=== PATIENT | female | born 1950 | race African-American/Black ===

== ENCOUNTER 2018-07-18 09:34 | Inpatient (IN) | payer MEDICARE ==
[~2018-07-18] VITALS: Ht 165.1 cm; Wt 90.7 kg
[2018-07-18] MEDS ORDERED: fentaNYL PF VIAL 100 MCG/2 ML VIAL IV ONE ×2 (10:00→10:30)
--- NOTE | 2018-07-18 10:03 | PHYS DOC ---
Past Medical History Past Medical History: Diabetes-Type II, Hypertension (SINDY FUENTES APRN) Past Surgical History: No Surgical History (SINDY FUENTES APRN) Alcohol Use: None Drug Use: None (SINDY FUENTES APRN) Adult General Chief Complaint Chief Complaint: MECHANICAL FALL HPI HPI 67-year-old female presents to ER via EMS from her residence following a mechanical fall at home. Patient states around 8:30 this morning she slid on her tile floor causing her right ankle to bend backwards. Patient has obvious deformity to right ankle and reports she has been unable to ambulate. She denies any [id number] medications prior to arrival EMS did start an IV but did not administer pain medication. Patient reports last food intake was last night. She denies striking her head or having any head, neck, or back pain . She reports only injury is to rt ankle. (SINDY FUENTES APRN) Review of Systems Review of Systems Constitutional: Denies fatigue/LOC Eyes: Denies change in visual acuity or eye pain [] HENT: Denies head pain Respiratory: Denies cough or shortness of breath [] Cardiovascular: Denies chest pain GI: Denies abdominal pain, nausea, vomiting- denies incontinence of bowel or bladder : Denies dysuria or hematuria [] Musculoskeletal: Denies back/neck pain. Reports right ankle pain with deformity Integument: Denies abrasions or bruising. Neurologic: Denies headache, focal weakness or sensory changes. Denies dizziness All other systems were reviewed and found to be within normal limits, except as documented in this note. (SINDY FUENTES APRN) Current Medications Current Medications Current Medications Medications (Trade) Dose Ordered Sig/[facility] Start Time Stop Time Status Last Admin Dose Admin Fentanyl Citrate (Fentanyl 2ml Vial) 25 mcg 1X ONCE 07/18/18 10:30 07/18/18 10:31 DC Ketamine HCl 100 mg 1X ONCE 07/18/18 11:00 07/18/18 11:01 DC 07/18/18 11:55 100 MG Ketamine HCl (Ketamine) 100 mg 1X ONCE 07/18/18 10:30 07/18/18 10:31 Cancel Ondansetron HCl (Zofran) 4 mg 1X ONCE 07/18/18 12:00 07/18/18 12:03 DC 07/18/18 12:08 4 MG (HOUGHAPPLE Herbert HICKMAN) Allergies Allergies Allergies Coded Allergies Type Severity Reaction Last Updated Verified No Known Drug Allergies 07/18/18 No (HOUGHAPPLEDONNY Godinez DO) Physical Exam Physical Exam Constitutional: Well developed, well nourished, no acute distress, non-toxic appearance. [] HENT: Normocephalic, atraumatic, oropharynx moist, no oral injury, nose normal. [] Eyes: Pupils equal, conjunctiva normal, no discharge. [] Neck: Normal range of motion, no tenderness mid line Cspine, supple, no stridor. [] Cardiovascular:Heart rate regular rhythm, no murmur [] Lungs & Thorax: Bilateral breath sounds clear to auscultation. Resp. equal/nonlabored Abdomen: Bowel sounds normal, soft, no tenderness Skin: Warm, dry, no erythema, no rash. [] Back: No tenderness mid spine- no palp. deformity, no CVA tenderness. [] Extremities: Pelvis stable/nontender. Lt LE NL exam- nontender. Rt hip/knee nontender and no palp. deformity. Deformity to rt ankle with swelling medial/lateral malleolus- no tenderness in foot/calcaneus; no open wounds. 2+ bilat. dorsalis pedis/posterior tibial. Neurologic: Alert and oriented X 3, normal motor function, normal sensory function, no focal deficits noted. [] Psychologic: Affect normal, judgement normal, mood normal. [] (KEYONT,SINDY Silva APRN) Current Patient Data Vital Signs Vital Signs Date Time Temp Pulse Resp B/P (MAP) Pulse Ox O2 Delivery O2 Flow Rate FiO2 07/18/18 11:45 124 19 98 07/18/18 11:03 98.6 165/70 2.0 98.4 2.0 98.4 2.0 98.4 2.0 98.7 2.0 98.7 2.0 98.7 98.2 98.2 07/18/18 09:40 Room Air (KRZYSZTOFAPPLE Herbert HICKMAN) Lab Values Laboratory Tests Test 07/18/18 09:41 White Blood Count 5.1 x10^3/uL (4.0-11.0) Red Blood Count 4.13 x10^6/uL (3.50-5.40) Hemoglobin 11.7 g/dL (12.0-15.5) L Hematocrit 36.9 % (36.0-47.0) Mean Corpuscular Volume 89 fL (79-100) Mean Corpuscular Hemoglobin 28 pg (25-35) Mean Corpuscular Hemoglobin Concent 32 g/dL (31-37) Red Cell Distribution Width 14.2 % (11.5-14.5) Platelet Count 261 x10^3/uL (140-400) Neutrophils (%) (Auto) 56 % (31-73) Lymphocytes (%) (Auto) 34 % (24-48) Monocytes (%) (Auto) 8 % (0-9) Eosinophils (%) (Auto) 1 % (0-3) Basophils (%) (Auto) 0 % (0-3) Neutrophils # (Auto) 2.9 x10^3uL (1.8-7.7) Lymphocytes # (Auto) 1.7 x10^3/uL (1.0-4.8) Monocytes # (Auto) 0.4 x10^3/uL (0.0-1.1) Eosinophils # (Auto) 0.1 x10^3/uL (0.0-0.7) Basophils # (Auto) 0.0 x10^3/uL (0.0-0.2) Sodium Level 141 mmol/L (136-145) Potassium Level 4.4 mmol/L (3.5-5.1) Chloride Level 104 mmol/L (98-107) Carbon Dioxide Level 30 mmol/L (21-32) Anion Gap 7 (6-14) Blood Urea Nitrogen 26 mg/dL (7-20) H Creatinine 1.1 mg/dL (0.6-1.0) H Estimated GFR (Cockcroft-Gault) 59.8 BUN/Creatinine Ratio 24 (6-20) H Glucose Level 176 mg/dL (70-99) H Calcium Level 9.2 mg/dL (8.5-10.1) Total Bilirubin 0.2 mg/dL (0.2-1.0) Aspartate Amino Transferase (AST) 17 U/L (15-37) Alanine Aminotransferase (ALT) 15 U/L (14-59) Alkaline Phosphatase 117 U/L (46-116) H Total Protein 7.8 g/dL (6.4-8.2) Albumin 3.2 g/dL (3.4-5.0) L Albumin/Globulin Ratio 0.7 (1.0-1.7) L Laboratory Tests 07/18/18 09:41 Laboratory Tests 07/18/18 09:41 (APPLE HOUGH DO) Lab Values Laboratory Tests Test 07/18/18 09:41 White Blood Count 5.1 x10^3/uL (4.0-11.0) Red Blood Count 4.13 x10^6/uL (3.50-5.40) Hemoglobin 11.7 g/dL (12.0-15.5) L Hematocrit 36.9 % (36.0-47.0) Mean Corpuscular Volume 89 fL (79-100) Mean Corpuscular Hemoglobin 28 pg (25-35) Mean Corpuscular Hemoglobin Concent 32 g/dL (31-37) Red Cell Distribution Width 14.2 % (11.5-14.5) Platelet Count 261 x10^3/uL (140-400) Neutrophils (%) (Auto) 56 % (31-73) Lymphocytes (%) (Auto) 34 % (24-48) Monocytes (%) (Auto) 8 % (0-9) Eosinophils (%) (Auto) 1 % (0-3) Basophils (%) (Auto) 0 % (0-3) Neutrophils # (Auto) 2.9 x10^3uL (1.8-7.7) Lymphocytes # (Auto) 1.7 x10^3/uL (1.0-4.8) Monocytes # (Auto) 0.4 x10^3/uL (0.0-1.1) Eosinophils # (Auto) 0.1 x10^3/uL (0.0-0.7) Basophils # (Auto) 0.0 x10^3/uL (0.0-0.2) Sodium Level 141 mmol/L (136-145) Potassium Level 4.4 mmol/L (3.5-5.1) Chloride Level 104 mmol/L (98-107) Carbon Dioxide Level 30 mmol/L (21-32) Anion Gap 7 (6-14) Blood Urea Nitrogen 26 mg/dL (7-20) H Creatinine 1.1 mg/dL (0.6-1.0) H Estimated GFR (Cockcroft-Gault) 59.8 BUN/Creatinine Ratio 24 (6-20) H Glucose Level 176 mg/dL (70-99) H Calcium Level 9.2 mg/dL (8.5-10.1) Total Bilirubin 0.2 mg/dL (0.2-1.0) Aspartate Amino Transferase (AST) 17 U/L (15-37) Alanine Aminotransferase (ALT) 15 U/L (14-59) Alkaline Phosphatase 117 U/L (46-116) H Total Protein 7.8 g/dL (6.4-8.2) Albumin 3.2 g/dL (3.4-5.0) L Albumin/Globulin Ratio 0.7 (1.0-1.7) L Laboratory Tests 07/18/18 09:41 Laboratory Tests 07/18/18 09:41 (SINDY FUENTES APRN) EKG EKG EKG obtained 07/18/18 at 1133 prior to Conscious sedation procedure Ordered by Dr. Hough and interpreted by him SVT Rate 142 No STEMI (SINDY FUENTES APRN) Radiology/Procedures Radiology/Procedures PROCEDURE: ANKLE RIGHT 3V Right ankle radiograph 07/18/2018 10:04 AM INDICATION: Fall in bathroom this a.m. COMPARISON: None available. TECHNIQUE: 3 views the right ankle are provided. FINDINGS: There is a trimalleolar fracture dislocation of the ankle. There is a obliquely oriented fracture involving the lateral malleolus approximately 2.6 cm from the distal tip. There is a medial malleolus fracture with fracture fragment measuring 1.6 cm. There is a fracture involving the posterior tibia. Tibiotalar and calcaneal talar articulations appear intact. The talar dome appears intact. There is complete disruption of the ankle mortise with anterior disc location of the tibia and fibula in relation to the talus. IMPRESSION: Trimalleolar fracture dislocation of the ankle. Electronically signed by: Alex Triana MD (07/18/2018 10:22 AM) [id number] DICTATED and SIGNED BY: ALEX TRIANA MD DATE: 07/18/18 1022 PROCEDURE: ANKLE RIGHT 3V Right ankle, 2 views, 07/18/2018: HISTORY: Postreduction evaluation Comparison is made to the study of earlier the same day. The current images were obtained through a radiopaque splint compromising bony detail. The previously seen ankle dislocation has been reduced. Alignment at the medial and lateral malleolar fracture sites has improved with only slight residual lateral displacement of the distal fracture fragments. A small, mildly displaced fracture fragment along the posterior aspect of the ankle joint probably arose from the posterior malleolus. No new abnormality is detected. IMPRESSION: Interval reduction of the trimalleolar fracture/dislocation as described above. Electronically signed by: José Bertrand MD (07/18/2018 11:45 AM) [facility] DICTATED and SIGNED BY: JOSÉ BERTRAND MD DATE: 07/18/18 7090 (SINDY FUENTES APRN) Course & Med Decision Making Course & Med Decision Making Pertinent Labs and Imaging studies reviewed. (See chart for details) Pt's case and imaging results discussed with Dr. Hough as conscious sedation and reduction of rt ankle is required d/t report of "Trimalleolar fracture dislocation of the ankle" on xray. Xray results were discussed with pt and her dgtr- pt has been provided with pain medication. 1200: Patient is feeling nauseous after reduction of rt ankle and so dose of Zofran was ordered. Pt on re-eval. has good sensation in rt toes- with no blanching/cyanotic skin color in foot. No swelling proximal to splint. Pt is going to be admitted to hospitalist services for further care with consult for Dr. Davila, orthopedics. Post reduction xray of rt ankle report of " Interval reduction of the trimalleolar fracture/dislocation". Admit plan was discussed with pt and her dgtr. (SINDY FUENTES APRN) Course & Med Decision Making Procedure: Procedural sedation Appropriate consents were obtained. The patient [place] 1 ASA 1. The patient was given 1 mg/kg of ketamine by ar. Appropriate sedation was obtained. Then using gentle traction the fracture and dislocation was easily reduced. New Procedure: Fracture dislocation reduction After appropriate sedation was obtained gentle traction was used to relocate and set the fracture dislocation. Then using OCL a posterior and strap splint was placed. The patient's foot was checked after and remained neurovascularly intact. (APPLE HOUGH DO) Dragon Disclaimer Dragon Disclaimer This electronic medical record was generated, in whole or in part, using a voice recognition dictation system. (SINDY FUENTES APRN) Departure Departure Impression: Primary Impression: Fracture of right ankle Disposition: ADMITTED INPATIENT Admitting Physician: Param Rehman (SINDY FUENTES APRN) Condition: STABLE Referrals: SENAIT MATT MD (PCP) SINDY FUENTES APRN Jul 18, 2018 10:03 APPLE HOUGH DO Jul 18, 2018 16:52
--- NOTE | 2018-07-18 10:24 | RAD ---
Right ankle radiograph 07/18/2018 10:04 AM INDICATION: Fall in bathroom this a.m. COMPARISON: None available. TECHNIQUE: 3 views the right ankle are provided. FINDINGS: There is a trimalleolar fracture dislocation of the ankle. There is a obliquely oriented fracture involving the lateral malleolus approximately 2.6 cm from the distal tip. There is a medial malleolus fracture with fracture fragment measuring 1.6 cm. There is a fracture involving the posterior tibia. Tibiotalar and calcaneal talar articulations appear intact. The talar dome appears intact. There is complete disruption of the ankle mortise with anterior disc location of the tibia and fibula in relation to the talus. IMPRESSION: Trimalleolar fracture dislocation of the ankle. Electronically signed by: Ewelina Lebron MD (07/18/2018 10:22 AM) [id number]
[2018-07-18] MEDS ORDERED: KETAMINE HCL IN NACL, ISO-OSM 50 MG/5 ML SYRINGE IV ONE (10:30)
[2018-07-18] MEDS ORDERED: KETAMINE HCL 500 MG/10 ML VIAL. IV ONE (11:00)
[2018-07-18 11:03] VITALS: BP 165/70
--- NOTE | 2018-07-18 11:48 | RAD ---
Right ankle, 2 views, 07/18/2018: HISTORY: Postreduction evaluation Comparison is made to the study of earlier the same day. The current images were obtained through a radiopaque splint compromising bony detail. The previously seen ankle dislocation has been reduced. Alignment at the medial and lateral malleolar fracture sites has improved with only slight residual lateral displacement of the distal fracture fragments. A small, mildly displaced fracture fragment along the posterior aspect of the ankle joint probably arose from the posterior malleolus. No new abnormality is detected. IMPRESSION: Interval reduction of the trimalleolar fracture/dislocation as described above. Electronically signed by: José Bertrand MD (07/18/2018 11:45 AM) [facility]
[2018-07-18] MEDS ORDERED: ONDANSETRON PF 4 MG/2 ML VIAL. IV ONE (12:00)
[2018-07-18 12:13] LABS: BASO % 0 % (0-3); EOS # 0.1 x10^3/uL (0.0-0.7); EOS % 1 % (0-3); HEMATOCRIT 36.9 % (36.0-47.0); HEMOGLOBIN 11.7 g/dL (12.0-15.5); LYMPH # 1.7 x10^3/uL (1.0-4.8); LYMPH % 34 % (24-48); MEAN CORPUSCULAR HEMOGLOBIN 28 pg (25-35); MEAN CORPUSCULAR HGB CONC 32 g/dL (31-37); MEAN CORPUSCULAR VOLUME 89 fL (79-100); MONO # 0.4 x10^3/uL (0.0-1.1); MONO % 8 % (0-9); NEUT # 2.9 x10^3uL (1.8-7.7); NEUT % 56 % (31-73); PLATELET COUNT 261 x10^3/uL (140-400); RED BLOOD COUNT 4.13 x10^6/uL (3.50-5.40); RED CELL DISTRIBUTION WIDTH 14.2 % (11.5-14.5); WHITE BLOOD COUNT 5.1 x10^3/uL (4.0-11.0)
[2018-07-18 12:18] LABS: CALCIUM 9.2 mg/dL (8.5-10.1); CREATININE 1.1 mg/dL (0.6-1.0); GFR 59.8; POTASSIUM 4.4 mmol/L (3.5-5.1)
[2018-07-18 12:24] LABS: ALBUMIN 3.2 g/dL (3.4-5.0); ALBUMIN/GLOBULIN RATIO 0.7 (1.0-1.7); TOTAL BILIRUBIN 0.2 mg/dL (0.2-1.0); TOTAL PROTEIN 7.8 g/dL (6.4-8.2)
--- NOTE | 2018-07-18 12:40 | EKG ---
[facility] [address] [place] [address] Test Date: 2018-07-18 Test Time: 11:33:29 Pat Name: BILL GOODWIN Department: Room: Gender: F [employer]iner: : 1950 Requested By: APPLE BLANKENSHIP Order Number: [id number] Reading MD: Cholo Lima MD Measurements Intervals [place] Rate: 141 P: DC: QRS: -38 QRSD: 96 T: 83 QT: 268 QTc: 412 Interpretive Statements PROBABLE SINUS TACHYCARDIA NON-SPECIFIC ST/T CHANGES Electronically Signed On 07-19-2018 10:47:37 CDT by Cholo Lima MD
--- NOTE | 2018-07-18 13:34 | PDOC1 ---
History and Physical Date of Admission Date of Admission DATE: 07/18/18 TIME: 13:34 Identification/Chief Complaint Chief Complaint seen in er , 67-year-old female presents to ER via EMS from her residence following a mechanical fall at home. Patient states around 8:30 this morning she slid on her tile floor causing her right ankle to bend backwards Past Medical History Cardiovascular: HTN Pulmonary: No pertinent hx GI: No pertinent hx Heme/Onc: No pertinent hx Psych: No pertinent hx Musculoskeletal: Osteoarthritis Renal/: No pertinent hx Family History Family History: Hypertension Social History Smoke: No ALCOHOL: none Drugs: None Current Medications Current Medications Current Medications Fentanyl Citrate (Fentanyl 2ml Vial) 25 mcg 1X ONCE IV Last administered on at 10:06; Start 07/18/18 at 10:00; Stop 07/18/18 at 10:01; Status DC Ketamine HCl (Ketamine) 100 mg 1X ONCE IV ; Start 07/18/18 at 10:30; Stop 07/18 at 10:31; Status Cancel Fentanyl Citrate (Fentanyl 2ml Vial) 25 mcg 1X ONCE IV ; Start 07/18/18 at 10: 30; Stop 07/18/18 at 10:31; Status DC Ketamine HCl 100 mg 1X ONCE IV Last administered on 07/18/18at 11:55; Start at 11:00; Stop 07/18/18 at 11:01; Status DC Ondansetron HCl (Zofran) 4 mg 1X ONCE IV Last administered on 07/18/18at 12:08 ; Start 07/18/18 at 12:00; Stop 07/18/18 at 12:03; Status DC Allergies Allergies: Coded Allergies: No Known Drug Allergies (Unverified , 07/18/18) ROS Review of System Review of Systems Review of Systems Constitutional: Denies fatigue Eyes: Denies change in visual acuity, redness, or eye pain [] HENT: Denies nasal congestion or sore throat [] Respiratory: Denies cough or shortness of breath [] Cardiovascular: Denies chest pain GI: Denies abdominal pain, nausea, vomiting-eyes incontinence of bowel or bladder : Denies dysuria or hematuria [] Musculoskeletal: Denies back/neck pain. Reports right ankle pain with deformity Integument: Denies abrasions or bruising. Neurologic: Denies headache, focal weakness or sensory changes. Denies dizziness 14 pt systems were reviewed and found to be within normal limits, except as documented PSYCHOLOGICAL ROS: No: Anxiety, Behavioral Disorder, Concentration difficultie , Decreased libido, Depression, Disorientation, Hallucinations, Hostility, Irritablity, Memory difficulties, Mood Swings, Obsessive thoughts, Physical abuse, Sexual abuse, Sleep disturbances, Suicidal ideation, Other Physical Exam Physical Exam Physical Exam Physical Exam Constitutional: Well developed, well nourished, mod acute distress, non-toxic appearance. [] HENT: Normocephalic, atraumatic, bilateral external ears normal, oropharynx moist, no oral exudates, nose normal. [] Eyes: Pupils equal, conjunctiva normal, no discharge. [] Neck: Normal range of motion, no tenderness, supple, no stridor. [] Cardiovascular:Heart rate regular rhythm, no murmur [] Lungs & Thorax: Bilateral breath sounds clear to auscultation [] Abdomen: Bowel sounds normal, soft, no tenderness, no masses, no pulsatile masses. [] Skin: Warm, dry, no erythema, no rash. [] Back: No tenderness, no CVA tenderness. [] Extremities: obliquely oriented fracture involving the lateral malleolus approximately 2.6 cm from the distal tip. There is a medial malleolus fracture with fracture fragment measuring 1.6 cm. There is a fracture involving the posterior tibia. Tibiotalar and calcaneal talar articulations appear intact. The talar dome appears intact. There is complete disruption of the ankle mortise with anterior disc location of the tibia and fibula in relation to the talus. Neurologic: Alert and oriented X 3, normal sensory function, no focal deficits noted. [] Psychologic: Affect normal, judgement normal, mood normal. [] General: Alert, Oriented X3, Cooperative, mild distress, moderate distress Lungs: Clear to auscultation Breasts: Not examined Abdomen: Normal bowel sounds, Soft Rectal Exam: not examined PELVIC: Examination not indicated Extremities: No cyanosis, Normal pulses Neuro: Normal speech, Sensation intact, Cranial nerves 3-12 NL Psych/Mental Status: Mental status NL Vitals Vitals Vital Signs Date Time Temp Pulse Resp B/P (MAP) Pulse Ox O2 Delivery O2 Flow Rate FiO2 07/18/18 13:14 96 17 96 07/18/18 11:03 98.6 165/70 2.0 98.4 2.0 98.4 2.0 98.4 2.0 98.7 2.0 98.7 2.0 98.7 98.2 98.2 07/18/18 09:40 Room Air Labs Labs Laboratory Tests Test 07/18/18 09:41 White Blood Count 5.1 x10^3/uL (4.0-11.0) Red Blood Count 4.13 x10^6/uL (3.50-5.40) Hemoglobin 11.7 g/dL (12.0-15.5) Hematocrit 36.9 % (36.0-47.0) Mean Corpuscular Volume 89 fL (79-100) Mean Corpuscular Hemoglobin 28 pg (25-35) Mean Corpuscular Hemoglobin Concent 32 g/dL (31-37) Red Cell Distribution Width 14.2 % (11.5-14.5) Platelet Count 261 x10^3/uL (140-400) Neutrophils (%) (Auto) 56 % (31-73) Lymphocytes (%) (Auto) 34 % (24-48) Monocytes (%) (Auto) 8 % (0-9) Eosinophils (%) (Auto) 1 % (0-3) Basophils (%) (Auto) 0 % (0-3) Neutrophils # (Auto) 2.9 x10^3uL (1.8-7.7) Lymphocytes # (Auto) 1.7 x10^3/uL (1.0-4.8) Monocytes # (Auto) 0.4 x10^3/uL (0.0-1.1) Eosinophils # (Auto) 0.1 x10^3/uL (0.0-0.7) Basophils # (Auto) 0.0 x10^3/uL (0.0-0.2) Sodium Level 141 mmol/L (136-145) Potassium Level 4.4 mmol/L (3.5-5.1) Chloride Level 104 mmol/L (98-107) Carbon Dioxide Level 30 mmol/L (21-32) Anion Gap 7 (6-14) Blood Urea Nitrogen 26 mg/dL (7-20) Creatinine 1.1 mg/dL (0.6-1.0) Estimated GFR (Cockcroft-Gault) 59.8 BUN/Creatinine Ratio 24 (6-20) Glucose Level 176 mg/dL (70-99) Calcium Level 9.2 mg/dL (8.5-10.1) Total Bilirubin 0.2 mg/dL (0.2-1.0) Aspartate Amino Transf (AST/SGOT) 17 U/L (15-37) Alanine Aminotransferase (ALT/SGPT) 15 U/L (14-59) Alkaline Phosphatase 117 U/L (46-116) Total Protein 7.8 g/dL (6.4-8.2) Albumin 3.2 g/dL (3.4-5.0) Albumin/Globulin Ratio 0.7 (1.0-1.7) Laboratory Tests Test 07/18/18 09:41 White Blood Count 5.1 x10^3/uL (4.0-11.0) Red Blood Count 4.13 x10^6/uL (3.50-5.40) Hemoglobin 11.7 g/dL (12.0-15.5) Hematocrit 36.9 % (36.0-47.0) Mean Corpuscular Volume 89 fL (79-100) Mean Corpuscular Hemoglobin 28 pg (25-35) Mean Corpuscular Hemoglobin Concent 32 g/dL (31-37) Red Cell Distribution Width 14.2 % (11.5-14.5) Platelet Count 261 x10^3/uL (140-400) Neutrophils (%) (Auto) 56 % (31-73) Lymphocytes (%) (Auto) 34 % (24-48) Monocytes (%) (Auto) 8 % (0-9) Eosinophils (%) (Auto) 1 % (0-3) Basophils (%) (Auto) 0 % (0-3) Neutrophils # (Auto) 2.9 x10^3uL (1.8-7.7) Lymphocytes # (Auto) 1.7 x10^3/uL (1.0-4.8) Monocytes # (Auto) 0.4 x10^3/uL (0.0-1.1) Eosinophils # (Auto) 0.1 x10^3/uL (0.0-0.7) Basophils # (Auto) 0.0 x10^3/uL (0.0-0.2) Sodium Level 141 mmol/L (136-145) Potassium Level 4.4 mmol/L (3.5-5.1) Chloride Level 104 mmol/L (98-107) Carbon Dioxide Level 30 mmol/L (21-32) Anion Gap 7 (6-14) Blood Urea Nitrogen 26 mg/dL (7-20) Creatinine 1.1 mg/dL (0.6-1.0) Estimated GFR (Cockcroft-Gault) 59.8 BUN/Creatinine Ratio 24 (6-20) Glucose Level 176 mg/dL (70-99) Calcium Level 9.2 mg/dL (8.5-10.1) Total Bilirubin 0.2 mg/dL (0.2-1.0) Aspartate Amino Transf (AST/SGOT) 17 U/L (15-37) Alanine Aminotransferase (ALT/SGPT) 15 U/L (14-59) Alkaline Phosphatase 117 U/L (46-116) Total Protein 7.8 g/dL (6.4-8.2) Albumin 3.2 g/dL (3.4-5.0) Albumin/Globulin Ratio 0.7 (1.0-1.7) Images Images There is a obliquely oriented fracture involving the lateral malleolus approximately 2.6 cm from the distal tip. There is a medial malleolus fracture with fracture fragment measuring 1.6 cm. There is a fracture involving the posterior tibia. Tibiotalar and calcaneal talar articulations appear intact. The talar dome appears intact. There is complete disruption of the ankle mortise with anterior disc location of the tibia and fibula in relation to the talus. IMPRESSION: Trimalleolar fracture dislocation of the ankle. Right ankle, 2 views, 07/18/2018: HISTORY: Postreduction evaluation Comparison is made to the study of earlier the same day. The current images were obtained through a radiopaque splint compromising bony detail. The previously seen ankle dislocation has been reduced. Alignment at the medial and lateral malleolar fracture sites has improved with only slight residual lateral displacement of the distal fracture fragments. A small, mildly displaced fracture fragment along the posterior aspect of the ankle joint probably arose from the posterior malleolus. No new abnormality is detected. IMPRESSION: Interval reduction of the trimalleolar fracture/dislocation as described above. Electronically signed by: José Bertrand MD (07/18/2018 11:45 AM) [facility] DICTATED and SIGNED BY: JOSÉ BERTRAND MD DATE: 07/18/18 1149 VTE Prophylaxis Ordered VTE Prophylaxis Devices: Contraindicated VTE Pharmacological Prophylaxi: Yes Assessment/Plan Assessment/Plan IMPRESSION acute trimalleolar fx of ankle OBESITY HTN GERD ankle dislocation has been reduced. Alignment at the medial and lateral malleolar fracture sites has improved with only slight residual lateral displacement of the distal fracture fragments. A small, mildly displaced fracture fragment along the posterior aspect of the ankle joint probably arose from the posterior malleolus plan iv pain control fentanyl consult ortho PT/OT CONT HOME MEDS 57 MIN PT EXAM, CHART REVIEW,> 50% time spent with exam, chart review, pt care coordination MICKEY URIOSTEUGI MD Jul 18, 2018 13:34
[2018-07-18] MEDS ORDERED: fentaNYL PF VIAL 100 MCG/2 ML VIAL IV PRN (14:00)
[2018-07-18] MEDS ORDERED: ONDANSETRON PF 4 MG/2 ML VIAL. IV PRN (14:00)
[2018-07-18 15:00] VITALS: BP 116/35
[2018-07-18 19:00] VITALS: BP 100/59
[2018-07-18] MEDS ORDERED: LISI1TAB3 PO (20:23)
[2018-07-18] MEDS ORDERED: OMEP40CA5 PO (20:23)
[2018-07-18 23:00] VITALS: BP 97/59
[2018-07-18] MEDS: HYDROcodone/APAP 7.5/325MG 1 TAB TABLET PO PRN (23:57)
[2018-07-19 03:00] VITALS: BP 131/72
[2018-07-19] MEDS: HYDROcodone/APAP 7.5/325MG 1 TAB TABLET PO PRN ×2 (06:01→09:33)
[2018-07-19 07:00] VITALS: BP 92/47
[2018-07-19] MEDS ORDERED: PANTOPRAZOLE 40 MG TABLET.DR. PO SCH (07:30)
[2018-07-19] MEDS ORDERED: HYDROcodone/APAP 7.5/325MG 1 TAB TABLET PO PRN (08:15)
[2018-07-19] MEDS ORDERED: LISINOPRIL 10 MG TABLET PO SCH (09:00)
[2018-07-19] MEDS ORDERED: hydroCHLOROthiazide 12.5 MG CAPSULE PO SCH (09:00)
[2018-07-19 11:00] VITALS: BP 140/56
[2018-07-19 15:00] VITALS: BP 118/60
--- NOTE | 2018-07-19 19:22 | DS ---
DATE OF DISCHARGE: 07/19/2018 ADMISSION DIAGNOSES: Fall with right ankle fracture. DISCHARGE DIAGNOSIS: Right ankle fracture (she is awaiting surgery next Tuesday). CONSULTS: Orthopedics. PROCEDURES: None. HOSPITAL COURSE: The patient is a pleasant 67-year-old female who presented with a right ankle fracture after falling. She was admitted. We consulted Orthopedics. We did pain management. She is doing great. The plan is to get a surgery next week. I saw her this morning. Her heart tones were normal. Her lungs were clear. Her extremities were in good shape. She has a clean, dry and intact dressing on the right. We plan to discharge with close outpatient followup. DISPOSITION: Home. ACTIVITY: As tolerated. DIET: Low sodium. MEDICATIONS: Please see the MRAD. TOTAL TIME: 34 minutes. PEDRO FREGOSO DO DR: MAISHA/chely JOB#: [id number] / [id number]
[2018-07-25] MEDS ORDERED: NPH,100V5 SQ (16:09)
[2018-07-25] MEDS ORDERED: HYDR-2761 PO (16:10)
== END 2018-07-19 16:30 | disposition home or self-care (01) | DRG 563 ==
LOC: ER 09:34 → 4 NORTH 13:05
PROVIDERS: ADMIT Family Medicine; ATTEND Family Medicine
DX: S82.851A Displaced trimalleolar fracture of right lower leg, initial encounter for closed fracture (principal); E11.9 Type 2 diabetes mellitus without complications; I10 Essential (primary) hypertension; M19.90 Unspecified osteoarthritis, unspecified site; K21.9 Gastro-esophageal reflux disease without esophagitis; W18.30XA Fall on same level, unspecified, initial encounter; E66.9 Obesity, unspecified; Z68.33 Body mass index [BMI] 33.0-33.9, adult; Y93.89 Activity, other specified; Y92.098 Other place in other non-institutional residence as the place of occurrence of the external cause; Y99.8 Other external cause status; Z82.49 Family history of ischemic heart disease and other diseases of the circulatory system
CPT/HCPCS: 27818; 36415; 73610; 80053; 82962; 85025; 93005; J2405; J3010; J3490; 97116; 97535; 99285-25

== ENCOUNTER 2018-07-26 07:21 | Day surgery (SDC) | payer MEDICARE ==
[~2018-07-26] VITALS: Ht 165.1 cm; Wt 81.6 kg
[~2018-07-26 07:21] MED LIST: BUPIVACAINE MPF 0.5% 30 ML VIAL. ONE; HYDR-2761 PO; HYDROmorphone 2 MG/ML VIAL IV PRN; IV RINGERS,LACTATED 1000ML 1,000 ML IV SCH; LIDOCAINE 1% 20 ML VIAL. ONE; LIDOCAINE 1% PF 2 ML VIAL. ID PRN; LISI1TAB3 PO; MORPHINE SULFATE 2 MG/ML VIAL. IV PRN; NPH,100V5 SQ; OMEP40CA5 PO; ONDANSETRON PF 4 MG/2 ML VIAL. IV PRN; PROCHLORPERAZINE 10 MG/2 ML VIAL. IV PRN; fentaNYL PF VIAL 100 MCG/2 ML VIAL IV PRN
[2018-07-26] MEDS ORDERED: BUPIVACAINE MPF 0.5% 30 ML VIAL. ONE (07:26)
[2018-07-26] MEDS ORDERED: LIDOCAINE 1% 20 ML VIAL. ONE (07:26)
[2018-07-26] MEDS ORDERED: ceFAZolin 2GM PREMIX 2 GM/50 ML BAG IV ONE (08:00)
[2018-07-26] MEDS ORDERED: PROPOFOL 20 ML IV ONE (08:20)
[2018-07-26] MEDS ORDERED: MIDAZOLAM HCL/PF 2 MG/2 ML VIAL. ONE (08:20)
[2018-07-26] MEDS ORDERED: LIDOCAINE 2% PF 5 ML VIAL. ONE (08:20)
[2018-07-26] MEDS ORDERED: ONDANSETRON PF 4 MG/2 ML VIAL. ONE (08:20)
[2018-07-26] MEDS ORDERED: DEXAMETHASONE SOD PHOS 20 MG/5 ML VIAL. ONE (08:20)
[2018-07-26] MEDS ORDERED: SEVOFLURANE 61 TO 120 MINUTES. IH ONE (08:20)
[2018-07-26] MEDS ORDERED: fentaNYL PF VIAL 100 MCG/2 ML VIAL ONE (08:20)
[2018-07-26] MEDS ORDERED: KETOROLAC 30 MG/ML INJ FOR OR. INJ ONE (08:20)
--- NOTE | 2018-07-26 08:33 | DISCH ---
DISCHARGE INSTRUCTIONS Condition on Discharge Condition on Discharge: Stable Activity After Discharge Activity Instructions for Disc: Other, see below Bathing Instructions: Shower-keep dressing dry Weight Bearing Status after Di: Non weight bearing Diet after Discharge Diet after Discharge: Regular Wound Incision Care Wound/Incision Care: Ice to area for comfort, Keep wound/cast CDI, Keep wound elevated, Do not change dressing Contacting the DRDavi after DC Call your doctor for: Concerns you may have Follow-Up Follow up with: Lola in 2 wks KAIDEN REDDY II, MD Jul 26, 2018 08:33
[2018-07-26] MEDS ORDERED: HYDROcodone/APAP 5/325MG 1 TAB TABLET PO ONE (08:45)
[2018-07-26] MEDS ORDERED: PHENYLEPHRINE in 0.9% NACL PF 1 MG/10 ML SYRINGE. IV ONE (08:47)
--- NOTE | 2018-07-26 09:59 | PDOC4 ---
Operative Note Operative Note Date of procedure: 07/26/2018 Surgeon: Addi Reddy Cable Rigger: Nohemi Baptiste, art therapy certified supervisor who was necessary to assist with fracture reduction, wound closure and splinting Preoperative diagnosis: Closed right bimalleolar ankle fracture dislocation Postoperative diagnosis: Same Procedure performed: Open reduction internal fixation right bimalleolar ankle fracture Tourniquet time: Less than 60 minutes Anesthesia: Gen. Findings: Acute fracture, stable external rotation stress test Blood loss: 25 mL Complications: None Components inserted: Dickens and nephew lateral distal fibular locking plate, 24.0 cannulated screws medially Reason for procedure: Patient is a very pleasant 59-year-old female who is seen in the emergency department after twisting injury resulted and ankle deformity and pain and inability to ambulate. She was reduced and splinted. I'd seen her in my clinic to evaluate her soft tissues and we discussed the risks, benefits, alternatives to surgery and she wished to proceed. Description of procedure: Patient was greeted in the preoperative area where the correct extremity was verified and marked. She was taken back to the operative suite and her antibiotics were started as she was brought back. Once in the operative room, she was transferred gently supine to the operating table and secured the bed with all pressure points padded and had successful induction of a general anesthetic. Nonsterile tourniquet taped in place to her right upper thigh. Right lower extremity underwent a chlorhexidine pre-scrub followed by our standard prepping and draping. We then conducted our standard preoperative timeout. I then palpated and marked surface anatomy and lana lines for my medial and lateral incisions. I incised skin laterally after insufflating the tourniquet, which was done after exsanguination with an Esmarch. I incised skin with a scalpel and dissected subcutaneous tissue with electrocautery and cauterized bleeders as a were encountered. After this, I identified the fracture site and used a Rominger, metal suction device and small curet to debride the fracture site. I used a periosteal elevator to expose the distal fibula in anticipation of plate application. After accomplishing this, I used a [id number] reduction forcep to help facilitate my reduction, I also used direct digital pressure. I then confirmed appropriate reduction under triplanar fluoroscopy. I then provisionally placed my plate against bone and used C-arm to help guide its position as well. I then secured the plate to the shaft with a nonlocking screw, I then filled screw holes distal to the fracture site with locking screws, I then placed one locking screw proximally fracture site as well as a nonlocking screw. After this, I directed my attention to my medial side of her ankle and incised skin in a curvilinear fashion centered over her medial malleolus. I used Metzenbaums and electrocautery dissect subcutaneous tissue and cauterized bleeders as a were encountered. Identified the fracture site and used a dental pick to pull distraction to debride the fracture site of interposed soft tissue and early hematoma. After this, I irrigated out the ankle joint thoroughly. I noted no loose debris or obvious injury to her articular surface under gross inspection. After this I used a dental pick to yeung in the medial malleolar fracture fragment and confirmed appropriate reduction under triplanar fluoroscopy. I then advanced my 2 cannulated wires confirming appropriate position again under triplanar fluoroscopic imaging. I then measured and drilled the near side for my cannulated screws and then advanced these. After this I took my final images and performed my external rotation stress test was happy with hardware position and plate application. There was no widening or syndesmosis. The operative incisions were thoroughly irrigated out and his deep layers were closed with inverted interrupted 2-0 Vicryl, subcutaneous tissues closed with inverted interrupted 2-0 Vicryl and skin was closed with 2-0 nylon in a mattress fashion. Tourniquet had been let down and hemostasis was achieved with electrocautery. After this, the leg and ankle were cleansed and dried and a sterile dressing was applied followed by sterile cast padding and an AO splint. No complications. All counts correct 2 prior to wound closure. Surgery was well tolerated by the patient. At the conclusion, she was awakened from anesthesia and transferred gently supine to the hospital bed and taken to PACU in a stable and extubated condition. Postoperative plan is for nonweightbearing. I will see her back in my clinic in 2 weeks, sooner should a problem arise. She'll be discharged home today. ADDI REDDY II, MD Jul 26, 2018 09:59
[2018-07-26] MEDS: fentaNYL PF VIAL 100 MCG/2 ML VIAL IV PRN ×2 (10:25→10:36)
[2018-07-26 11:45] VITALS: BP 135/66
== END 2018-07-26 11:50 | disposition home or self-care (01) ==
LOC: SURG 07:21
PROVIDERS: ATTEND Orthopaedic Surgery Sports Medicine
DX: S82.841A Displaced bimalleolar fracture of right lower leg, initial encounter for closed fracture (principal); I10 Essential (primary) hypertension; E11.9 Type 2 diabetes mellitus without complications; K21.9 Gastro-esophageal reflux disease without esophagitis; Z90.710 Acquired absence of both cervix and uterus; Z98.890 Other specified postprocedural states; Z87.891 Personal history of nicotine dependence; Z79.899 Other long term (current) drug therapy; X50.1XXA Overexertion from prolonged static or awkward postures, initial encounter; Y93.89 Activity, other specified; Y92.89 Other specified places as the place of occurrence of the external cause; Y99.8 Other external cause status; Z79.84 Long term (current) use of oral hypoglycemic drugs
CPT/HCPCS: 27814; 76000; 82962; 97116; 97162; 97530; A7015; C1713; J0696; J1100; J1885; J2001; J2250; J2370; J2405; J2704; J3010; J7120; J3490

== ENCOUNTER 2021-01-03 13:08 | Inpatient (IN) | payer MEDICARE ==
[~2021-01-03] VITALS: Ht 165.1 cm; Wt 77.8 kg
[~2021-01-03 13:08] MED LIST changes: -BUPIVACAINE MPF 0.5% 30 ML VIAL. ONE; -HYDROmorphone 2 MG/ML VIAL IV PRN; -IV RINGERS,LACTATED 1000ML 1,000 ML IV SCH; -LIDOCAINE 1% 20 ML VIAL. ONE; -LIDOCAINE 1% PF 2 ML VIAL. ID PRN; +LISI1TAB23 PO; -LISI1TAB3 PO; -MORPHINE SULFATE 2 MG/ML VIAL. IV PRN; -OMEP40CA5 PO; +OMEP40CA7 PO; -ONDANSETRON PF 4 MG/2 ML VIAL. IV PRN; -PROCHLORPERAZINE 10 MG/2 ML VIAL. IV PRN; -fentaNYL PF VIAL 100 MCG/2 ML VIAL IV PRN
[2021-01-03 14:10] LABS: BASO % 0 % (0-3); EOS % 0 % (0-3); HEMATOCRIT 34.9 % (36.0-47.0); HEMOGLOBIN 12.2 g/dL (12.0-15.5); LYMPH % 10 % (24-48); MEAN CORPUSCULAR HEMOGLOBIN 30 pg (25-35); MEAN CORPUSCULAR HGB CONC 35 g/dL (31-37); MEAN CORPUSCULAR VOLUME 85 fL (79-100); MONO # 0.6 x10^3/uL (0.0-1.1); MONO % 6 % (0-9); NEUT # 7.8 x10^3/uL (1.8-7.7); NEUT % 83 % (31-73); PLATELET COUNT 448 x10^3/uL (140-400); RED BLOOD COUNT 4.11 x10^6/uL (3.50-5.40); RED CELL DISTRIBUTION WIDTH 13.3 % (11.5-14.5); WHITE BLOOD COUNT 9.4 x10^3/uL (4.0-11.0)
[2021-01-03 14:17] LABS: CALCIUM 9.1 mg/dL (8.5-10.1); CREATININE 8.6 mg/dL (0.6-1.0); GFR 5.5; POTASSIUM 4.6 mmol/L (3.5-5.1)
--- NOTE | 2021-01-03 14:23 | RAD ---
PROCEDURE: XR CHEST 1V.01/03/2021 2:20 PM REASON FOR STUDY: Reason: covid + / Spl. Instructions: / History: . COMPARISON: None. FINDINGS: No consolidation is seen. There are some increased peripheral lung markings in the mid and lower lungs. These are consistent with Covid 19 diagnosis, although may be more chronic. No pleural f luid is seen. Heart size is normal. IMPRESSION: Increased pulmonary markings consistent with history of Covid 19. Electronically signed by: Uri Travis Jr., MD (01/03/2021 2:21 PM) [id number]
[2021-01-03] MEDS ORDERED: IV NORMAL SALINE 1000ML BAG 1,000 ML IV ONE (16:00)
[2021-01-03] MEDS ORDERED: ACETAMINOPHEN 500 MG TABLET PO ONE (16:00)
[2021-01-03 16:32] LABS: BASE EXCESS ABG -9 mmol/L (-3-3); HCO3 ABG 15 mmol/L (21-28); PCO2 ABG 25 mmHg (35-46); PO2 ABG 83 mmHg (65-108); SAT O2 ABG 95 % (92-99)
[2021-01-03 16:38] LABS: FIO2 ABG 21
--- NOTE | 2021-01-03 16:41 | PHYS DOC ---
Past Medical History Past Medical History: Diabetes-Type II, Hypertension Past Surgical History: Hysterectomy Smoking Status: Former Smoker Alcohol Use: None Drug Use: None General Adult EDM: Chief Complaint: FATIGUE HPI: HPI: Patient is a 70 year old female who presents with generalized fatigue in the setting of a known Covid infection. Her symptoms started with generalized fatigue on 12/27. Was tested and 12/30 and resulted positive. Her weakness is only worsened. She denies cough, fever, ch ills, shortness of breath, sore throat. She did have diarrhea, but this improved. She has felt nauseous and has had very poor p.o. intake during this time. Denies any history of renal problems. Review of Systems: Review of Systems: Constitutional: Reports generalized fatigue denies fever or chills. [] Eyes: Denies change in visual acuity. [] HENT: Denies nasal congestion or sore throat. [] Respiratory: Denies cough or shortness of breath. [] Cardiovascular: Denies chest pain or edema. [] GI: Denies abdominal pain, nausea, vomiting, bloody stools or diarrhea. [] : Denies dysuria. [] Musculoskeletal: Denies back pain or joint pain. [] Integument: Denies rash. [] Neurologic: Denies headache, focal weakness or sensory changes. [] Endocrine: Denies polyuria or polydipsia. [] Lymphatic: Denies swollen glands. [] Psychiatric: Denies depression or anxiety. [] Heart Score: C/O Chest Pain: No Risk Factors: Risk Factors: DM, Current or recent (<one month) smoker, HTN, HLP, family history of CAD, obesity. Risk Scores: Score 0 - 3: 2.5% MACE over next 6 weeks - Discharge Home Score 4 - 6: 20.3% MACE over next 6 weeks - Admit for Clinical Observation Score 7 - 10: 72.7% MACE over next 6 weeks - Early Invasive Strategies Current Medications: Current Medications Medications (Trade) Dose Ordered Sig/Carline Start Time Stop Time Status Last Admin Dose Admin Acetaminophen (Tylenol) 1,000 mg 1X ONCE 01/03/21 16:00 01/03/21 16:01 DC 01/03/21 16:03 1,000 MG Sodium Chloride 1,000 ml @ 1,000 mls/hr 1X ONCE 01/03/21 16:00 01/03/21 16:59 01/03/21 16:03 1,000 MLS/HR Allergies: Allergies: Allergies Coded Allergies Type Severity Reaction Last Updated Verified No Known Drug Allergies 07/26/18 No Physical Exam: PE: Constitutional: Fatigued appearing elderly female. No acute distress. Nontoxic appearing. [] HENT: Normocephalic, atraumatic, bilateral external ears normal, oropharynx moist, no oral exudates, nose normal. [] Eyes: PERRLA, EOMI, conjunctiva normal, no discharge. [] Neck: Normal range of motion, no tenderness, supple, no stridor. [] Cardiovascular:Heart rate regular rhythm, no murmur [] Lungs & Thorax: Bilateral breath sounds clear to auscultation [] Abdomen: Bowel sounds normal, soft, no tenderness, no masses, no pulsatile masses. [] Skin: Warm, dry, no erythema, no rash. [] Back: No tenderness, no CVA tenderness. [] Extremities: No tenderness, no cyanosis, no clubbing, ROM intact, no edema. [] Neurologic: Alert and oriented X 3, normal motor function, normal sensory function, no focal deficits noted. [] Psychologic: Affect normal, judgement normal, mood normal. [] Current Patient Data: Labs: Laboratory Tests Test 01/03/21 13:50 01/03/21 16:30 White Blood Count 9.4 x10^3/uL (4.0-11.0) Red Blood Count 4.11 x10^6/uL (3.50-5.40) Hemoglobin 12.2 g/dL (12.0-15.5) Hematocrit 34.9 % (36.0-47.0) L Mean Corpuscular Volume 85 fL (79-100) Mean Corpuscular Hemoglobin 30 pg (25-35) Mean Corpuscular Hemoglobin Concent 35 g/dL (31-37) Red Cell Distribution Width 13.3 % (11.5-14.5) Platelet Count 448 x10^3/uL (140-400) H Neutrophils (%) (Auto) 83 % (31-73) H Lymphocytes (%) (Auto) 10 % (24-48) L Monocytes (%) (Auto) 6 % (0-9) Eosinophils (%) (Auto) 0 % (0-3) Basophils (%) (Auto) 0 % (0-3) Neutrophils # (Auto) 7.8 x10^3/uL (1.8-7.7) H Lymphocytes # (Auto) 1.0 x10^3/uL (1.0-4.8) Monocytes # (Auto) 0.6 x10^3/uL (0.0-1.1) Eosinophils # (Auto) 0.0 x10^3/uL (0.0-0.7) Basophils # (Auto) 0.0 x10^3/uL (0.0-0.2) Sodium Level 133 mmol/L (136-145) L Potassium Level 4.6 mmol/L (3.5-5.1) Chloride Level 96 mmol/L (98-107) L Carbon Dioxide Level 19 mmol/L (21-32) L Anion Gap 18 (6-14) H Blood Urea Nitrogen 111 mg/dL (7-20) H Creatinine 8.6 mg/dL (0.6-1.0) H Estimated GFR (Cockcroft-Gault) 5.5 Glucose Level 391 mg/dL (70-99) H Calcium Level 9.1 mg/dL (8.5-10.1) O2 Saturation 95 % (92-99) Arterial Blood pH 7.39 (7.35-7.45) Arterial Blood pCO2 at Patient Temp 25 mmHg (35-46) L Arterial Blood pO2 at Patient Temp 83 mmHg (65-108) Arterial Blood HCO3 15 mmol/L (21-28) L Arterial Blood Base Excess -9 mmol/L (-3-3) L FiO2 21 Laboratory Tests 01/03/21 13:50 Laboratory Tests 01/03/21 13:50 Vital Signs: Vital Signs Date Time Temp Pulse Resp B/P (MAP) Pulse Ox O2 Delivery O2 Flow Rate FiO2 01/03/21 14:43 74 22 154/71 (98) 98 Room Air 01/03/21 13:27 97.7 97.7 EKG: EKG: Sinus rhythm. Rate 80. Normal axis. QRS normal. No acute ischemic changes. [] Radiology/Procedures: Radiology/Procedures: [] Impression: [facility] [address] [place], [place] [id number] IMAGING REPORT Signed PATIENT: BILL GOODWIN ACCOUNT: [id number] : 1950 LOCATION: ER AGE: 70 SEX: F EXAM STATUS: REG ER ORD. PHYSICIAN: CORNELL ELENA MD REASON: covid + PROCEDURE: CHEST AP ONLY PROCEDURE: XR CHEST 1V.01/03/2021 2:20 PM REASON FOR STUDY: Reason: covid + / Spl. Instructions: / History: . COMPARISON: None. FINDINGS: No consolidation is seen. There are some increased peripheral lung ma rkings in the mid and lower lungs. These are consistent with Covid 19 diagnosis, although may be more chronic. No pleural fluid is seen. Heart size is normal. IMPRESSION: Increased pulmonary markings consistent with history of Covid 19. Electronically signed by: Cem Leiva Jr., MD (01/03/2021 2:21 PM) [id number] DICTATED and SIGNED BY: CEM LEIVA Jr, MD DATE: 01/03/21 [id number] 0 Course & Med Decision Making: Course & Med Decision Making Pertinent Labs and Imaging studies reviewed. (See chart for details) Patient is 70-year-old female who presents with worsening generalized weakness/fatigue in the setting of a known COVID-19 infection. She is afebrile, hemodynamically stable and satting well on room air. No acute distress on examination. Chest x-ray consistent with known COVID-19 infection. Labs showed a new ARELY with creatinine>8. No evidence of hyperkalemia. She does have a BUN of 111, and a mild anion gap acidosis. Her glucose is also elevated to 391. Mild gap acidosis may be related to starvation ketosis, uremia, or mild ketosis from diabetes. She was given a 1 L normal saline bolus, and started on a maintenance rate of 125 cc/hour per nephrology recommendations. Nephrology now following. Admitted to hospitalist for further management. Belen Disclaimer: Belen Disclaimer: This electronic medical record was generated, in whole or in part, using a voice recognition dictation system. Departure Departure Impression: Primary Impression: ARELY (acute kidney injury) Additional Impressions: COVID-19 High anion gap metabolic acidosis Disposition: ADMITTED INPATIENT Admitting Physician: RAND ([place]) Condition: STABLE Referrals: GOSALIA,SENAIT V MD (PCP) CORNELL ELENA MD Jan 03, 2021 16:41
[2021-01-03 17:43] LABS: BILIRUBIN,URINE NEGATIVE (NEG); CLARITY,URINE CLEAR; COLOR,URINE YELLOW; NITRITE,URINE NEGATIVE (NEG); PH,URINE 5.5 (<5.0-8.0); PROTEIN,URINE 30 mg/dL (NEG-TRACE)
[2021-01-03 17:52] VITALS: BP 162/66
[2021-01-03 18:00] LABS: BACTERIA,URINE MANY /HPF (0-FEW); RBC,URINE OCC /HPF (0-2); WBC,URINE >40 /HPF (0-4); YEAST,URINE PRESENT /HPF
[2021-01-03 19:00] VITALS: BP 152/43
[2021-01-03] MEDS: IV NORMAL SALINE 1000ML BAG 1,000 ML IV SCH ×2 (20:17→20:18)
[2021-01-03] MEDS ORDERED: DEXTROSE 50% 25 GM / 50ML DISP.SYRIN. IV PRN (20:30)
[2021-01-03] MEDS ORDERED: INSULIN LISPRO 300 UNITS/3 ML VIAL. SQ ONE (20:45)
[2021-01-03] MEDS ORDERED: guaiFENesin/CODEINE 100mg/10mg 5 ML LIQUID PO PRN (20:45)
[2021-01-03] MEDS: INSULIN LISPRO 300 UNITS/3 ML VIAL. SQ SCH (21:00)
--- NOTE | 2021-01-03 21:18 | HP ---
ADMIT DATE: 01/03/2021 CHIEF COMPLAINT: Fatigue. HISTORY OF PRESENT ILLNESS: The patient is a pleasant 70-year-old female who presented to the ER [facility] with fatigue. She has a known history of recent COVID infection. She has generalized fatigue for the past 7 days. She tested positive on 12/30, which was about 4 days ago. She did have some diarrhea. She felt nauseated. She is somewhat of a poor historian. I discussed the case with the ER physician, we are going to admit the patient with COVID-19 criteria and she also has renal failure with acute kidney injury with a BUN of 111 and a creatinine of 8.6. PAST MEDICAL HISTORY: Diabetes, hypertension, hysterectomy, poor historian, previous tobacco abuse. ALLERGIES: None. FAMILY HISTORY: Diabetes. SOCIAL HISTORY: She does not drink, smoke or take drugs. She quit smoking. MEDICATIONS: Reviewed. Please refer to the MRAD. REVIEW OF SYSTEMS: Unable to obtain. She is too weak. She is a poor historian. PHYSICAL EXAMINATION: VITALS: Within normal limits and are stable. GENERAL: She is a poor historian. She is very weak. HEENT: Normal cephalic atraumatic, external auditory canals are patent. EYES: Extraocular muscles are intact, pupils are equally round and reactive to light and accommodation. MUSCULOSKELETAL: Well developed, well nourished, good range of motion. ENDOCRINE: No thyromegaly was palpated. LYMPHATICS: No cervical chain or axillary nodes were noted. HEMATOPOIETIC: No bruising. NECK: Supple, no JVD, no thyromegaly was noted. LUNGS: Clear to auscultation in all lung reyes without rhonchi or wheezing. HEART: RRR, S1, S2 present. Peripheral pulses intact, no obvious murmurs were noted. ABDOMEN: Soft, nontender. Positive bowel sounds no organomegaly, normal bowel sounds. EXTREMITIES: Without any cyanosis, clubbing, or edema. Pedal pulses intact, Homans sign is negative. NEUROLOGIC: She is a poor historian. She is very weak. PSYCHIATRIC: She is a poor historian. She is very weak. SKIN: No ulcerations or rashes, good skin turgor, no jaundice. VASCULAR: Good capillary refill, neurovascular bundle appears to be intact. LABORATORY DATA: Electrolytes: Sodium 133, potassium 4.6, chloride 96, bicarbonate 19, BUN 111, creatinine 8.6. White count 9.4, hemoglobin 12.2, platelets 448. Urinalysis: Moderate amount of leukocyte esterase and greater than 40 white cells. On ABG, her pH is 7.39, pCO2 of 25, bicarbonate 15, pO2 is 83, O2 sat 95% that was on room air. Chest x-ray; increased pulmonary markings consistent with history of COVID-19. ASSESSMENT AND PLAN: Severe renal failure, COVID-19 infection, azotemia, urinary tract infection. The patient has been admitted. We will start IV antibiotics, IV fluids. Consult nephrology. Home meds. Deep venous thrombosis prophylaxis. Full code. She is not hypoxic at this time. She is not a candidate for remdesivir. We will go ahead and give her doxycycline, vitamins, beta agonist, codeine cough syrup and aspirin. Consult infectious disease. Prognosis is guarded. MAISHA/ENDY DR: Radha TID: [id number]
[2021-01-03] MEDS: AA 4.25 %/CALCIUM/LYTES/D5W 1,000 ML IV SCH (21:33)
[2021-01-03] MEDS: DOXYCYCLINE HYCLATE 100 MG in IV NORMAL SALINE 100ML 100 ML IV SCH (21:34)
[2021-01-03] MEDS: HYDROcodone/APAP 5/325MG 1 TAB TABLET PO PRN (22:06)
[2021-01-03 23:23] VITALS: BP 154/63
[2021-01-04 03:16] VITALS: BP 154/73
[2021-01-04 07:00] VITALS: BP 170/73
[2021-01-04] MEDS: MULTIVITAMIN with MINERAL TABLET. PO SCH (08:51)
[2021-01-04] MEDS: PANTOPRAZOLE 40 MG TABLET.DR. PO SCH (08:52)
[2021-01-04] MEDS: HYDROcodone/APAP 5/325MG 1 TAB TABLET PO PRN ×2 (08:52→17:26)
[2021-01-04] MEDS: ASPIRIN CHEWABLE 81 MG TABLET. PO SCH (08:52)
[2021-01-04] MEDS: DOXYCYCLINE HYCLATE 100 MG in IV NORMAL SALINE 100ML 100 ML IV SCH (08:53)
[2021-01-04] MEDS: IV NORMAL SALINE 1000ML BAG 1,000 ML IV SCH (08:53)
[2021-01-04] MEDS: AA 4.25 %/CALCIUM/LYTES/D5W 1,000 ML IV SCH (08:54)
[2021-01-04] MEDS ORDERED: INSULIN LISPRO 300 UNITS/3 ML VIAL. SQ ONE (09:00)
[2021-01-04] MEDS: INSULIN LISPRO 300 UNITS/3 ML VIAL. SQ SCH ×3 (09:06→17:26)
--- NOTE | 2021-01-04 10:20 | PDOC2 ---
CONSULT Date of Consult Date of Consult DATE: 01/04/21 TIME: 10:12 Reason for Consult Reason for Consult: ARELY Referring Physician Referring Physician: ILDEFONSO Identification/Chief Complaint Chief Complaint WEAKNESS Source Source: Chart review, Patient History of Present Illness Reason for Visit: THIS IS A 70 YR OLD WITH SEVERE FATIGUE. NO APPETITE. TESTED POS FOR COVID 19 5 DAYS AGO. HAS HAD NAUSEA POOR PO INTAKE AND DIARRHEA WELL. CR OF 1.0 IN 2019. ON ADMIT CR OF 8.6 WITH MET ACIDOSIS WITH A SMALL AG AND NA OF 133. SHE REPORTS NO HX. HAS SOME INCONTINENCE. HEMODYNAMICALLY STABLE. NO NEPHROTOXINS NOTED. UA C/W AN UTI. HER BG LEVELS HAVE ALSO BEEN ABOUT 400. SHE HAS NOTED A DECREASE IN HER UO Past Medical History Cardiovascular: HTN Endocrine: Diabetes Past Surgical History Past Surgical History: Hysterectomy Social History No ALCOHOL: none Drugs: None Lives: Alone Current Problem List Problem List Problems Medical Problems: (1) ARELY (acute kidney injury) Status: Acute (2) COVID-19 Status: Acute (3) High anion gap metabolic acidosis Status: Acute Current Medications Current Medications Current Medications Sodium Chloride 1,000 ml @ 1,000 mls/hr 1X ONCE IV Last administered on 01/03/21at 16:03; Start 01/03/21 at 16:00; Stop 01/03/21 at 16:59; Status DC Acetaminophen (Tylenol) 1,000 mg 1X ONCE PO Last administered on 01/03/21at 16:03; Start 01/03/21 at 16:00; Stop 01/03/21 at 16:01; Status DC Sodium Chloride 1,000 ml @ 125 mls/hr Q8H IV Last administered on 01/04/21at 08:53; Start 01/03/21 at 16:45; Stop 01/04/21 at 16:44 Acetaminophen/ Hydrocodone Bitart (Lortab 5/325) 1 tab PRN Q6HRS PRN PO PAIN Last administered on 01/04/21at 08:52; Start 01/03/21 at 20:30 Pantoprazole Sodium (Protonix) 40 mg DAILYAC PO Last administered on 01/04/21at 08:52; Start 01/04/21 at 07:30 Amlodipine Besylate (Norvasc) 10 mg DAILY PO Last administered on 01/04/21at 08:51; Start 01/03/21 at 21:00 Insulin Human Lispro (HumaLOG) 0-5 UNITS QIDACHS SQ Last administered on 01/04/21at 09:06; Start 01/03/21 at 21:00 Dextrose (Dextrose 50%-Water Syringe) 12.5 gm PRN Q15MIN PRN IV SEE COMMENTS; Start 01/03/21 at 20:30 Insulin Human Lispro (HumaLOG) 8 units 1X ONCE SQ Last administered on 01/03/21at 21:39; Start 01/03/21 at 20:45; Stop 01/03/21 at 20:46; Status DC Doxycycline Hyclate 100 mg/ Sodium Chloride 100 ml @ 50 mls/hr Q12HR IV Last administered on 01/04/21at 08:53; Start 01/03/21 at 21:00 Multivitamins (Thera M Plus) 1 tab DAILY PO Last administered on 01/04/21at 08:51; Start 01/04/21 at 09:00 Aspirin (Aspirin Chewable) 81 mg DAILYWBKFT PO Last administered on 01/04/21at 08:52; Start 01/04/21 at 08:00 Guaifenesin/ Codeine Phosphate (Robitussin Ac) 5 ml PRN Q6HRS PRN PO COUGH; Start 01/03/21 at 20:45 Amino Acids/ Electrolytes/ Dextrose 1,000 ml @ 80 mls/hr [id number] IV Last administered on 01/04/21at 08:54; Start 01/03/21 at 21:00 Insulin Human Lispro (HumaLOG) 10 units 1X ONCE SQ Last administered on 01/04at 09:07; Start 01/04/21 at 09:00; Stop 01/04/21 at 09:01; Status DC Active Scripts Active Reported Hydrocodone-Apap 5-325 (Hydrocodone Bit/Acetaminophen) 1 Tab Tablet 1 Tab PO PRN Q6HRS PRN Novolin N (Nph, Human Insulin Isophane) 100 Unit/1 Ml Vial 10 Unit SQ BIDAC Lisinopril-Hctz 10-12.5 Mg Tab (Lisinopril/Hydrochlorothiazide) 1 Each Tablet 1 Tab PO DAILY Omeprazole 40 Mg Capsule. 1 Cap PO DAILY Allergies Allergies: Coded Allergies: No Known Drug Allergies (Unverified , 07/26/18) ROS General: YES: Fatigue, Malaise, Appetite PSYCHOLOGICAL ROS: YES: Anxiety Eyes: Yes Decreased vision, Yes Dry eyes HEENT: YES: Heacaches, Nasal congestion ALLERGY AND IMMUNOLOGY: YES: Seasonal Allergies Respiratory: YES: Cough, Shortness of breath Cardiovascular: yes Lt Headedness Gastrointestinal: Yes Nausea Genitourinary: YES Other (DECREASED UO) Musculoskeletal: Yes Muscular Weakness Neurological: Yes Headaches, Yes Memory Loss, Yes Weakness Skin: Yes Dry Skin Physical Exam General: Alert, Oriented X3, Cooperative, No acute distress HEENT: Atraumatic Lungs: Clear to auscultation Heart: Regular rate, Normal S1 Abdomen: Normal bowel sounds, Soft, No tenderness Extremities: No clubbing Skin: No breakdown Neuro: Normal speech, Normal tone Psych/Mental Status: Mental status NL MUSCULOSKELETAL: No joint tenderness, No deformity, No swelling Vitals VITALS Vital Signs Date Time Temp Pulse Resp B/P (MAP) Pulse Ox O2 Delivery O2 Flow Rate FiO2 01/04/21 09:22 18 Room Air 01/04/21 08:51 73 154/73 01/04/21 07:00 98.1 94 98.1 Labs Labs Laboratory Tests Test 01/03/21 13:50 01/03/21 16:30 01/03/21 17:38 01/03/21 20:02 White Blood Count 9.4 x10^3/uL (4.0-11.0) Red Blood Count 4.11 x10^6/uL (3.50-5.40) Hemoglobin 12.2 g/dL (12.0-15.5) Hematocrit 34.9 % (36.0-47.0) Mean Corpuscular Volume 85 fL (79-100) Mean Corpuscular Hemoglobin 30 pg (25-35) Mean Corpuscular Hemoglobin Concent 35 g/dL (31-37) Red Cell Distribution Width 13.3 % (11.5-14.5) Platelet Count 448 x10^3/uL (140-400) Neutrophils (%) (Auto) 83 % (31-73) Lymphocytes (%) (Auto) 10 % (24-48) Monocytes (%) (Auto) 6 % (0-9) Eosinophils (%) (Auto) 0 % (0-3) Basophils (%) (Auto) 0 % (0-3) Neutrophils # (Auto) 7.8 x10^3/uL (1.8-7.7) Lymphocytes # (Auto) 1.0 x10^3/uL (1.0-4.8) Monocytes # (Auto) 0.6 x10^3/uL (0.0-1.1) Eosinophils # (Auto) 0.0 x10^3/uL (0.0-0.7) Basophils # (Auto) 0.0 x10^3/uL (0.0-0.2) Sodium Level 133 mmol/L (136-145) Potassium Level 4.6 mmol/L (3.5-5.1) Chloride Level 96 mmol/L (98-107) Carbon Dioxide Level 19 mmol/L (21-32) Anion Gap 18 (6-14) Blood Urea Nitrogen 111 mg/dL (7-20) Creatinine 8.6 mg/dL (0.6-1.0) Estimated GFR (Cockcroft-Gault) 5.5 Glucose Level 391 mg/dL (70-99) Calcium Level 9.1 mg/dL (8.5-10.1) O2 Saturation 95 % (92-99) Arterial Blood pH 7.39 (7.35-7.45) Arterial Blood pCO2 at Patient Temp 25 mmHg (35-46) Arterial Blood pO2 at Patient Temp 83 mmHg (65-108) Arterial Blood HCO3 15 mmol/L (21-28) Arterial Blood Base Excess -9 mmol/L (-3-3) FiO2 21 Urine Collection Type Unknown Urine Color Yellow Urine Clarity Clear Urine pH 5.5 (<5.0-8.0) Urine Specific [place] 1.020 (1.000-1.030) Urine Protein 30 mg/dL (NEG-TRACE) Urine Glucose (UA) 250 mg/dL (NEG) Urine Ketones (Stick) Trace mg/dL (NEG) Urine Blood Moderate (NEG) Urine Nitrite Negative (NEG) Urine Bilirubin Negative (NEG) Urine Urobilinogen Dipstick 1.0 mg/dL (0.2 mg/dL) Urine Leukocyte Esterase Moderate (NEG) Urine RBC Occ /HPF (0-2) Urine WBC >40 /HPF (0-4) Urine Bacteria Many /HPF (0-FEW) Urine Yeast Present /HPF Glucose (Fingerstick) 402 mg/dL (70-99) Test 01/04/21 08:07 Glucose (Fingerstick) 465 mg/dL (70-99) Laboratory Tests Test 01/03/21 13:50 01/03/21 16:30 01/03/21 17:38 01/03/21 20:02 White Blood Count 9.4 x10^3/uL (4.0-11.0) Red Blood Count 4.11 x10^6/uL (3.50-5.40) Hemoglobin 12.2 g/dL (12.0-15.5) Hematocrit 34.9 % (36.0-47.0) Mean Corpuscular Volume 85 fL (79-100) Mean Corpuscular Hemoglobin 30 pg (25-35) Mean Corpuscular Hemoglobin Concent 35 g/dL (31-37) Red Cell Distribution Width 13.3 % (11.5-14.5) Platelet Count 448 x10^3/uL (140-400) Neutrophils (%) (Auto) 83 % (31-73) Lymphocytes (%) (Auto) 10 % (24-48) Monocytes (%) (Auto) 6 % (0-9) Eosinophils (%) (Auto) 0 % (0-3) Basophils (%) (Auto) 0 % (0-3) Neutrophils # (Auto) 7.8 x10^3/uL (1.8-7.7) Lymphocytes # (Auto) 1.0 x10^3/uL (1.0-4.8) Monocytes # (Auto) 0.6 x10^3/uL (0.0-1.1) Eosinophils # (Auto) 0.0 x10^3/uL (0.0-0.7) Basophils # (Auto) 0.0 x10^3/uL (0.0-0.2) Sodium Level 133 mmol/L (136-145) Potassium Level 4.6 mmol/L (3.5-5.1) Chloride Level 96 mmol/L (98-107) Carbon Dioxide Level 19 mmol/L (21-32) Anion Gap 18 (6-14) Blood Urea Nitrogen 111 mg/dL (7-20) Creatinine 8.6 mg/dL (0.6-1.0) Estimated GFR (Cockcroft-Gault) 5.5 Glucose Level 391 mg/dL (70-99) Calcium Level 9.1 mg/dL (8.5-10.1) O2 Saturation 95 % (92-99) Arterial Blood pH 7.39 (7.35-7.45) Arterial Blood pCO2 at Patient Temp 25 mmHg (35-46) Arterial Blood pO2 at Patient Temp 83 mmHg (65-108) Arterial Blood HCO3 15 mmol/L (21-28) Arterial Blood Base Excess -9 mmol/L (-3-3) FiO2 21 Urine Collection Type Unknown Urine Color Yellow Urine Clarity Clear Urine pH 5.5 (<5.0-8.0) Urine Specific [place] 1.020 (1.000-1.030) Urine Protein 30 mg/dL (NEG-TRACE) Urine Glucose (UA) 250 mg/dL (NEG) Urine Ketones (Stick) Trace mg/dL (NEG) Urine Blood Moderate (NEG) Urine Nitrite Negative (NEG) Urine Bilirubin Negative (NEG) Urine Urobilinogen Dipstick 1.0 mg/dL (0.2 mg/dL) Urine Leukocyte Esterase Moderate (NEG) Urine RBC Occ /HPF (0-2) Urine WBC >40 /HPF (0-4) Urine Bacteria Many /HPF (0-FEW) Urine Yeast Present /HPF Glucose (Fingerstick) 402 mg/dL (70-99) Test 01/04/21 08:07 Glucose (Fingerstick) 465 mg/dL (70-99) Images Images PROCEDURE: XR CHEST 1V.01/03/2021 2:20 PM REASON FOR STUDY: Reason: covid + / Spl. Instructions: / History: . COMPARISON: None. FINDINGS: No consolidation is seen. There are some increased peripheral lung markings in the mid and lower lungs. These are consistent with Covid 19 diagnosis, although may be more chronic. No pleural fluid is seen. Heart size is normal. IMPRESSION: Increased pulmonary markings consistent with history of Covid 19. Electronically signed by: Uri Travis Jr., MD (01/03/2021 2:21 PM) [id number] Assessment/Plan Assessment/Plan IMP ARELY-ATN-CR OF 8.6 PROB MILD CKD STAGE 2 DEHYDRATION MET ACIDOSIS HYPONATREMIA UNCONTROLLED DM II URINARY TRACT INFECTION COVID 19 INFECTION-UNVACCINATED PLAN HYDRATION ANTIBIOTICS MAY NEED HD WILL FOLLOW LETICIA MELGAR MD Jan 04, 2021 10:20
[2021-01-04 11:00] VITALS: BP 154/61
[2021-01-04 11:19] LABS: CALCIUM 9.2 mg/dL (8.5-10.1); CREATININE 4.6 mg/dL (0.6-1.0); GFR 11.4; POTASSIUM 4.1 mmol/L (3.5-5.1)
--- NOTE | 2021-01-04 12:14 | CONS ---
DATE OF CONSULTATION: 01/04/2021 REFERRING PHYSICIAN: Dr. Castro. REASON FOR CONSULTATION: COVID and UTI. HISTORY OF PRESENT ILLNESS: This is a 70-year-old -Citizen Of [place] female with no history of kidney problem. The patient presented with weakness, not feeling well and fatigue. The patient recently had a COVID test done, which was positive. The patient denies any shortness of breath. She has had fever, she says, but now has improved. Denies any nausea, vomiting, diarrhea. Denies any urinary symptoms. The patient was found to have acute kidney failure and the patient, because of the COVID, has been started on remdesivir and doxycycline. The patient is again other than what I mentioned, no other complaints or problems. PAST MEDICAL AND SURGICAL HISTORY: Positive for cataract extraction, coronary artery disease, hypertension, gastroesophageal reflux disease, has had hysterectomy, carpal tunnel syndrome, back problems, diabetes. SOCIAL HISTORY: Positive for smoking. No alcohol use or drug use. The patient also did not do COVID vaccine, but she is willing to get it now. CURRENT MEDICATIONS: Reviewed. REVIEW OF SYSTEMS: As in HPI. All other systems reviewed and are negative. PHYSICAL EXAMINATION: GENERAL: Alert and oriented female, not in distress. VITAL SIGNS: Stable, afebrile. HEENT: NAD. NECK: Supple, no JVP, no lymphadenopathy. LUNGS: Clear. HEART: S1, S2 regular. ABDOMEN: Soft, nontender, no organomegaly. EXTREMITIES: No edema or cyanosis. SKIN: Unremarkable. NEUROLOGIC: The patient is alert, awake, and appropriate. No focal neurologic deficit. LABORATORY DATA: Her creatinine is 8.6, BUN 111. White count is normal, hemoglobin 12.2. Urinalysis showed more than 40 wbc's. Chest x-ray, increased pulmonary markings. IMPRESSION: 1. COVID-19 positive. 2. Acute kidney injury. 3. Pulmonary infiltrate. 4. Diabetes. 5. Hypertension. 6. Abnormal urinalysis, probably related to the acute kidney injury. The patient is asymptomatic. RECOMMENDATIONS: We will discontinue doxycycline. Continue supportive care and we will continue to follow. Thank you very much, Dr. Castro, for giving me opportunity to participate in this patient's care. ALEXANDR/JET DR: ALEXANDR/chely TID: [id number]
[2021-01-04] MEDS ORDERED: DEXTROSE 50% 25 GM / 50ML DISP.SYRIN. IV PRN (12:45)
--- NOTE | 2021-01-04 13:18 | PDOC ---
[employer] PROGRESS NOTE Date of Service DOS: DATE: 01/04/21 TIME: 13:16 Chief Complaint Chief Complaint Fatigue, weakness, History of Present Illness History of Present Illness The patient is a pleasant 70-year-old female [facility]. She has a known history of recent COVID infection. She has generalized fatigue for the past 7 days. She tested positive on 12/30, which was about 4 days ago. She did have some diarrhea. She felt nauseated. She is somewhat of a poor historian. I discussed the case with the ER physician, we are going to admit the patient with COVID-19 criteria and she also has renal failure with acute kidney injury with a BUN of 111 and a creatinine of 8.6. 01/04 Patient evaluated at bedside. Still treating for COVID-19. Remains on room air. Nephrology and pulmonary following. Kidney function improving today. PT OT Vitals/I&O Vitals/I&O: Vital Signs Date Time Temp Pulse Resp B/P (MAP) Pulse Ox O2 Delivery O2 Flow Rate FiO2 01/04/21 11:00 97.9 69 18 154/61 (92) 93 97.9 01/04/21 09:22 Room Air I & O 01/03/21 01/03/21 01/04/21 15:00 23:00 07:00 Intake Total 1350 ml 800 ml Balance 1350 ml 800 ml Physical Exam General: Alert, Oriented X3, Cooperative, No acute distress Heart: Regular rate, Normal S1 Abdomen: Normal bowel sounds, Soft, No tenderness Extremities: No clubbing Skin: No breakdown Labs Labs: Laboratory Tests Test 01/03/21 13:50 01/03/21 16:30 01/03/21 17:38 01/03/21 20:02 White Blood Count 9.4 x10^3/uL (4.0-11.0) Red Blood Count 4.11 x10^6/uL (3.50-5.40) Hemoglobin 12.2 g/dL (12.0-15.5) Hematocrit 34.9 % (36.0-47.0) Mean Corpuscular Volume 85 fL (79-100) Mean Corpuscular Hemoglobin 30 pg (25-35) Mean Corpuscular Hemoglobin Concent 35 g/dL (31-37) Red Cell Distribution Width 13.3 % (11.5-14.5) Platelet Count 448 x10^3/uL (140-400) Neutrophils (%) (Auto) 83 % (31-73) Lymphocytes (%) (Auto) 10 % (24-48) Monocytes (%) (Auto) 6 % (0-9) Eosinophils (%) (Auto) 0 % (0-3) Basophils (%) (Auto) 0 % (0-3) Neutrophils # (Auto) 7.8 x10^3/uL (1.8-7.7) Lymphocytes # (Auto) 1.0 x10^3/uL (1.0-4.8) Monocytes # (Auto) 0.6 x10^3/uL (0.0-1.1) Eosinophils # (Auto) 0.0 x10^3/uL (0.0-0.7) Basophils # (Auto) 0.0 x10^3/uL (0.0-0.2) Sodium Level 133 mmol/L (136-145) Potassium Level 4.6 mmol/L (3.5-5.1) Chloride Level 96 mmol/L (98-107) Carbon Dioxide Level 19 mmol/L (21-32) Anion Gap 18 (6-14) Blood Urea Nitrogen 111 mg/dL (7-20) Creatinine 8.6 mg/dL (0.6-1.0) Estimated GFR (Cockcroft-Gault) 5.5 Glucose Level 391 mg/dL (70-99) Calcium Level 9.1 mg/dL (8.5-10.1) O2 Saturation 95 % (92-99) Arterial Blood pH 7.39 (7.35-7.45) Arterial Blood pCO2 at Patient Temp 25 mmHg (35-46) Arterial Blood pO2 at Patient Temp 83 mmHg (65-108) Arterial Blood HCO3 15 mmol/L (21-28) Arterial Blood Base Excess -9 mmol/L (-3-3) FiO2 21 Urine Collection Type Unknown Urine Color Yellow Urine Clarity Clear Urine pH 5.5 (<5.0-8.0) Urine Specific [place] 1.020 (1.000-1.030) Urine Protein 30 mg/dL (NEG-TRACE) Urine Glucose (UA) 250 mg/dL (NEG) Urine Ketones (Stick) Trace mg/dL (NEG) Urine Blood Moderate (NEG) Urine Nitrite Negative (NEG) Urine Bilirubin Negative (NEG) Urine Urobilinogen Dipstick 1.0 mg/dL (0.2 mg/dL) Urine Leukocyte Esterase Moderate (NEG) Urine RBC Occ /HPF (0-2) Urine WBC >40 /HPF (0-4) Urine Bacteria Many /HPF (0-FEW) Urine Yeast Present /HPF Glucose (Fingerstick) 402 mg/dL (70-99) Test 01/04/21 08:07 01/04/21 10:40 01/04/21 12:03 Glucose (Fingerstick) 465 mg/dL (70-99) 394 mg/dL (70-99) Sodium Level 135 mmol/L (136-145) Potassium Level 4.1 mmol/L (3.5-5.1) Chloride Level 101 mmol/L (98-107) Carbon Dioxide Level 21 mmol/L (21-32) Anion Gap 13 (6-14) Blood Urea Nitrogen 91 mg/dL (7-20) Creatinine 4.6 mg/dL (0.6-1.0) Estimated GFR (Cockcroft-Gault) 11.4 Glucose Level 411 mg/dL (70-99) Calcium Level 9.2 mg/dL (8.5-10.1) Assessment and Plan Assessmemt and Plan Problems Medical Problems: (1) ARELY (acute kidney injury) Status: Acute (2) COVID-19 Status: Acute (3) High anion gap metabolic acidosis Status: Acute Severe renal failure, COVID-19 infection, azotemia, urinary tract infection. The patient has been admitted. We will start IV antibiotics, IV fluids. Consult nephrology. Home meds. Deep venous thrombosis prophylaxis. Full code. She is not hypoxic at this time. She is not a candidate for remdesivir. We will go ahead and give her doxycycline, vitamins, beta agonist, codeine cough syrup and aspirin. Consult infectious disease. Prognosis is guarded. Comment Review of Relevant I have reviewed the following items dexter (where applicable) has been applied. Medications: Current Medications Medications (Trade) Dose Ordered Sig/Carline Route PRN Reason Start Time Stop Time Status Last Admin Dose Admin Sodium Chloride 1,000 ml @ 1,000 mls/hr 1X ONCE IV 01/03/21 16:00 01/03/21 16:59 DC 01/03/21 16:03 Acetaminophen (Tylenol) 1,000 mg 1X ONCE PO 01/03/21 16:00 01/03/21 16:01 DC 01/03/21 16:03 Sodium Chloride 1,000 ml @ 125 mls/hr Q8H IV 01/03/21 16:45 01/04/21 16:44 01/04/21 08:53 Acetaminophen/ Hydrocodone Bitart (Lortab 5/325) 1 tab PRN Q6HRS PRN PO PAIN 01/03/21 20:30 01/04/21 08:52 Pantoprazole Sodium (Protonix) 40 mg DAILYAC PO 01/04/21 07:30 01/04/21 08:52 Amlodipine Besylate (Norvasc) 10 mg DAILY PO 01/03/21 21:00 01/04/21 08:51 Insulin Human Lispro (HumaLOG) 0-5 UNITS QIDACHS SQ 01/03/21 21:00 01/04/21 12:49 DC 01/04/21 09:06 Insulin Human Lispro (HumaLOG) 8 units 1X ONCE SQ 01/03/21 20:45 01/03/21 20:46 DC 01/03/21 21:39 Doxycycline Hyclate 100 mg/ Sodium Chloride 100 ml @ 50 mls/hr Q12HR IV 01/03/21 21:00 01/04/21 10:54 DC 01/04/21 08:53 Multivitamins (Thera M Plus) 1 tab DAILY PO 01/04/21 09:00 01/04/21 08:51 Aspirin (Aspirin Chewable) 81 mg DAILYWBKFT PO 01/04/21 08:00 01/04/21 08:52 Amino Acids/ Electrolytes/ Dextrose 1,000 ml @ 80 mls/hr [id number] IV 01/03/21 21:00 01/04/21 12:06 DC 01/04/21 08:54 Insulin Human Lispro (HumaLOG) 10 units 1X ONCE SQ 01/04/21 09:00 01/04/21 09:01 DC 01/04/21 09:07 Justifications for Admission Other Justification BALTA RAMIREZ MD Jan 04, 2021 13:18
[2021-01-04 15:00] VITALS: BP 164/60
[2021-01-04 19:00] VITALS: BP 147/71
--- NOTE | 2021-01-04 20:28 | EKG ---
[facility] [address] [place] [address] Test Date: 2021-01-03 Test Time: 13:36:52 Pat Name: BILL GOODWIN Department: Room: [facility] Gender: F Director Of [employer] Estate: : 1950 Requested By: CORNELL ELENA Order Number: [id number] Reading MD: Allen Orellana Measurements Intervals [place] Rate: 80 P: 49 [place]: 132 QRS: 3 QRSD: 82 T: 73 QT: 350 QTc: 407 Interpretive Statements SINUS RHYTHM Electronically Signed On 01-06-2021 13:31:11 CDT by Allen Orellana
[2021-01-04] MEDS: INSULIN GLARGINE SYRINGE. SQ SCH (20:57)
[2021-01-04 22:41] VITALS: BP 163/55
[2021-01-05 02:43] VITALS: BP 141/59
[2021-01-05 06:52] LABS: CALCIUM 9.4 mg/dL (8.5-10.1); CREATININE 2.7 mg/dL (0.6-1.0); POTASSIUM 4.8 mmol/L (3.5-5.1)
[2021-01-05 07:00] VITALS: BP 116/65
--- NOTE | 2021-01-05 09:12 | PDOC ---
Infectious Disease Note Subjective Subjective Patient is feeling good has no shortness of breath fever no nausea vomiting diarrhea ROS ROS Denies chest pain shortness of Vital Sign Vital Signs Vital Signs Date Time Temp Pulse Resp B/P (MAP) Pulse Ox O2 Delivery O2 Flow Rate FiO2 01/05/21 07:00 96.5 82 18 116/65 (82) 96 Room Air 96.5 Physical Exam PHYSICAL EXAM GENERAL: Alert and oriented female, not in distress. VITAL SIGNS: Stable, afebrile. HEENT: NAD. NECK: Supple, no JVP, no lymphadenopathy. LUNGS: Clear. HEART: S1, S2 regular. ABDOMEN: Soft, nontender, no organomegaly. EXTREMITIES: No edema or cyanosis. SKIN: Unremarkable. NEUROLOGIC: The patient is alert, awake, and appropriate. No focal neurologic deficit. Labs Lab Laboratory Tests Test 01/04/21 10:40 01/04/21 12:03 01/04/21 16:56 01/04/21 19:12 Sodium Level 135 mmol/L (136-145) Potassium Level 4.1 mmol/L (3.5-5.1) Chloride Level 101 mmol/L (98-107) Carbon Dioxide Level 21 mmol/L (21-32) Anion Gap 13 (6-14) Blood Urea Nitrogen 91 mg/dL (7-20) Creatinine 4.6 mg/dL (0.6-1.0) Estimated GFR (Cockcroft-Gault) 11.4 Glucose Level 411 mg/dL (70-99) Calcium Level 9.2 mg/dL (8.5-10.1) Glucose (Fingerstick) 394 mg/dL (70-99) 234 mg/dL (70-99) 146 mg/dL (70-99) Test 01/05/21 06:00 01/05/21 08:20 Sodium Level 140 mmol/L (136-145) Potassium Level 4.8 mmol/L (3.5-5.1) Chloride Level 105 mmol/L (98-107) Carbon Dioxide Level 21 mmol/L (21-32) Anion Gap 14 (6-14) Blood Urea Nitrogen 60 mg/dL (7-20) Creatinine 2.7 mg/dL (0.6-1.0) Estimated GFR (Cockcroft-Gault) 21.0 Glucose Level 175 mg/dL (70-99) Calcium Level 9.4 mg/dL (8.5-10.1) Glucose (Fingerstick) 207 mg/dL (70-99) Objective Assessment IMPRESSION: 1. COVID-19 positive. 2. Acute kidney injury. 3. Pulmonary infiltrate. 4. Diabetes. 5. Hypertension. 6. Abnormal urinalysis, probably related to the acute kidney injury. The patient is asymptomatic. Plan Plan of Care Creatinine has improved Patient has remained on room air and no fever patient can be discharged from the infectious disease standpoint of view SOILA OLSON MD Jan 05, 2021 09:12
[2021-01-05] MEDS: ASPIRIN CHEWABLE 81 MG TABLET. PO SCH (09:35)
[2021-01-05] MEDS: PANTOPRAZOLE 40 MG TABLET.DR. PO SCH (09:35)
[2021-01-05] MEDS: MULTIVITAMIN with MINERAL TABLET. PO SCH (09:35)
[2021-01-05] MEDS: HYDROcodone/APAP 5/325MG 1 TAB TABLET PO PRN ×2 (09:35→22:10)
[2021-01-05] MEDS: INSULIN LISPRO 300 UNITS/3 ML VIAL. SQ SCH ×6 (09:40→17:00)
--- NOTE | 2021-01-05 10:38 | PDOC ---
DATE OF SERVICE DATE: 01/05/21 TIME: 10:31 SUBJECTIVE ROS feeling better, No SOB, No N/V OBJECTIVE Vital Signs Vital Signs Date Time Temp Pulse Resp B/P (MAP) Pulse Ox O2 Delivery O2 Flow Rate FiO2 01/05/21 09:36 82 116/65 01/05/21 09:35 17 Room Air 01/05/21 07:00 96.5 96 96.5 I & 0 Intake and Output 01/05/21 07:00 Intake Total 800 ml Output Total 650 ml Balance 150 ml Intake Oral 800 ml Output Urine Total 650 ml # Voids 4 PHYSICAL EXAM Physical Exam GENERAL: not in distress. HEENT: NAD.OM moist NECK: Supple, LUNGS: Clear.Non labored HEART: S1, S2 regular. ABDOMEN: Soft, nontender, no organomegaly. EXTREMITIES: No edema or cyanosis. SKIN: Unremarkable. NEUROLOGIC: alert, awake, and appropriate. No focal neurologic deficit. DIAGNOSIS/ASSESSMENT Assessment & Plan ARELY-ATN- Cr 8.6 POA- improving with IVF , 2.7 today. ? UOP accuracy , Non Gagandeep guric per RN . Maintain hydration , supportive care, stict I/O , Monitor daily labs CKD stage 2-Probably Dehydration - improving with IVF, maintain hydration Metabolic acidosis POA- resolved HypoNaytemia - POA- resolved DM2- Uncontrolled Abnormal UA- No UTI per ID . Pt asymptomatic COVID 19 infection- Unvaccinated COMMENT/RELEVANT DATA Meds Current Medications Medications (Trade) Dose Ordered Sig/Carline Start Time Stop Time Status Last Admin Dose Admin Acetaminophen (Tylenol) 1,000 mg 1X ONCE 01/03/21 16:00 01/03/21 16:01 DC 01/03/21 16:03 1,000 MG Acetaminophen/ Hydrocodone Bitart (Lortab 5/325) 1 tab PRN Q6HRS PRN 01/03/21 20:30 01/05/21 09:35 1 TAB Amino Acids/ Electrolytes/ Dextrose 1,000 ml @ 80 mls/hr [id number] 01/03/21 21:00 01/04/21 12:06 DC 01/04/21 08:54 80 MLS/HR Amlodipine Besylate (Norvasc) 10 mg DAILY 01/03/21 21:00 01/05/21 09:36 10 MG Aspirin (Aspirin Chewable) 81 mg [id number] 01/04/21 08:00 01/05/21 09:35 81 MG Dextrose (Dextrose 50%-Water Syringe) 12.5 gm PRN Q15MIN PRN 01/04/21 12:45 Doxycycline Hyclate 100 mg/ Sodium Chloride 100 ml @ 50 mls/hr Q12HR 01/03/21 21:00 01/04/21 10:54 DC 01/04/21 08:53 50 MLS/HR Guaifenesin/ Codeine Phosphate (Robitussin Ac) 5 ml PRN Q6HRS PRN 01/03/21 20:45 Insulin Glargine (Lantus Syringe) 10 unit QHS 01/04/21 21:00 01/04/21 20:57 10 UNIT Insulin Human Lispro (HumaLOG) 0-9 UNITS TIDWMEALS 01/04/21 17:00 01/05/21 09:41 7 UNITS Multivitamins (Thera M Plus) 1 tab DAILY 01/04/21 09:00 01/05/21 09:35 1 TAB Pantoprazole Sodium (Protonix) 40 mg DAILYAC 01/04/21 07:30 01/05/21 09:35 40 MG Sodium Chloride 1,000 ml @ 125 mls/hr Q8H 01/03/21 16:45 01/04/21 16:44 DC 01/04/21 08:53 125 MLS/HR Lab Laboratory Tests Test 01/04/21 10:40 01/04/21 12:03 01/04/21 16:56 01/04/21 19:12 Sodium Level 135 mmol/L (136-145) Potassium Level 4.1 mmol/L (3.5-5.1) Chloride Level 101 mmol/L (98-107) Carbon Dioxide Level 21 mmol/L (21-32) Anion Gap 13 (6-14) Blood Urea Nitrogen 91 mg/dL (7-20) Creatinine 4.6 mg/dL (0.6-1.0) Estimated GFR (Cockcroft-Gault) 11.4 Glucose Level 411 mg/dL (70-99) Calcium Level 9.2 mg/dL (8.5-10.1) Glucose (Fingerstick) 394 mg/dL (70-99) 234 mg/dL (70-99) 146 mg/dL (70-99) Test 01/05/21 06:00 01/05/21 08:20 Sodium Level 140 mmol/L (136-145) Potassium Level 4.8 mmol/L (3.5-5.1) Chloride Level 105 mmol/L (98-107) Carbon Dioxide Level 21 mmol/L (21-32) Anion Gap 14 (6-14) Blood Urea Nitrogen 60 mg/dL (7-20) Creatinine 2.7 mg/dL (0.6-1.0) Estimated GFR (Cockcroft-Gault) 21.0 Glucose Level 175 mg/dL (70-99) Calcium Level 9.4 mg/dL (8.5-10.1) Glucose (Fingerstick) 207 mg/dL (70-99) Results All relevant outside records, renal labs, imaging studies, telemetry/EKG's were reviewed. Justicifation of Admission Dx: Justifications for Admission: Justification of Admission Dx: Yes Acute Renal Failure: 3-Fold Rise in Serum Crea EVELINE YANES MD Jan 05, 2021 10:38
--- NOTE | 2021-01-05 10:55 | PDOC ---
[facility] PROGRESS NOTE Date of Service DOS: DATE: 01/05/21 TIME: 10:54 Chief Complaint Chief Complaint A/P: Fatigue, weakness ARELY - vasomotor nephropathy, improving COVID 19 - mostly asymptomatic Pulmonary infiltrate - likely COVID 19 abnormality Diabetes - sliding scale Hypertension - cont home meds Abnormal urinalysis, probably related to the acute kidney injury - off antibiotics History of Present Illness History of Present Illness The patient is a pleasant 70-year-old female who presented to the ER tonight with fatigue. She has a known history of recent COVID infection. She has generalized fatigue for the past 7 days. She tested positive on 12/30, which was about 4 days ago. She did have some diarrhea. She felt nauseated. She is somewhat of a poor historian. I discussed the case with the ER physician, we are going to admit the patient with COVID-19 criteria and she also has renal failure with acute kidney injury with a BUN of 111 and a creatinine of 8.6. 01/04: Patient evaluated at bedside. Still treating for COVID-19. Remains on room air. Nephrology and pulmonary following. Kidney function improving today. PT OT BUN 60, CR 2.7. Feeling very weak. Still with loose stools no diarrhea. No O2 requirements Vitals/I&O Vitals/I&O: Vital Signs Date Time Temp Pulse Resp B/P (MAP) Pulse Ox O2 Delivery O2 Flow Rate FiO2 01/05/21 09:36 82 116/65 01/05/21 09:35 17 Room Air 01/05/21 07:00 96.5 96 96.5 I & O 01/04/21 01/04/21 01/05/21 15:00 23:00 07:00 Intake Total 800 ml Output Total 650 ml Balance 150 ml Physical Exam Physical Exam: GENERAL: Alert and oriented female, not in distress. VITAL SIGNS: Stable, afebrile. HEENT: NAD. NECK: Supple, no JVP, no lymphadenopathy. LUNGS: Clear. HEART: S1, S2 regular. ABDOMEN: Soft, nontender, no organomegaly. EXTREMITIES: No edema or cyanosis. SKIN: Unremarkable. NEUROLOGIC: The patient is alert, awake, and appropriate. No focal neurologic deficit. General: Alert, Oriented X3, Cooperative, No acute distress Heart: Regular rate, Normal S1 Abdomen: Normal bowel sounds, Soft, No tenderness Extremities: No clubbing Skin: No breakdown Labs Labs: Laboratory Tests Test 01/04/21 12:03 01/04/21 16:56 01/04/21 19:12 01/05/21 06:00 Glucose (Fingerstick) 394 mg/dL (70-99) 234 mg/dL (70-99) 146 mg/dL (70-99) Sodium Level 140 mmol/L (136-145) Potassium Level 4.8 mmol/L (3.5-5.1) Chloride Level 105 mmol/L (98-107) Carbon Dioxide Level 21 mmol/L (21-32) Anion Gap 14 (6-14) Blood Urea Nitrogen 60 mg/dL (7-20) Creatinine 2.7 mg/dL (0.6-1.0) Estimated GFR (Cockcroft-Gault) 21.0 Glucose Level 175 mg/dL (70-99) Calcium Level 9.4 mg/dL (8.5-10.1) Test 01/05/21 08:20 Glucose (Fingerstick) 207 mg/dL (70-99) Assessment and Plan Assessmemt and Plan Problems Medical Problems: (1) ARELY (acute kidney injury) Status: Acute (2) COVID-19 Status: Acute (3) High anion gap metabolic acidosis Status: Acute Comment Review of Relevant I have reviewed the following items dexter (where applicable) has been applied. Medications: Current Medications Medications (Trade) Dose Ordered Sig/Carline Route PRN Reason Start Time Stop Time Status Last Admin Dose Admin Insulin Human Lispro (HumaLOG) 10 units TIDWMEALS SQ 01/04/21 17:00 01/05/21 09:40 Insulin Human Lispro (HumaLOG) 0-9 UNITS TIDWMEALS SQ 01/04/21 17:00 01/05/21 09:41 Insulin Glargine (Lantus Syringe) 10 unit QHS SQ 01/04/21 21:00 01/04/21 20:57 Justifications for Admission Other Justification BALTA MAGAÑA MD Jan 05, 2021 10:54
[2021-01-05 11:00] VITALS: BP 108/65
--- NOTE | 2021-01-05 11:00 | NUR ---
SW following. Discussed with RN, pt from home with daughter, room air, renal diet. COVID-19 positive. RN advised no SW needs at this time. SW will continue to follow.
[2021-01-05 15:00] VITALS: BP 141/74
[2021-01-05] MEDS: IV NORMAL SALINE 1000ML BAG 1,000 ML IV SCH (16:00)
[2021-01-05 19:00] VITALS: BP 175/63
[2021-01-05] MEDS: INSULIN GLARGINE SYRINGE. SQ SCH (21:49)
[2021-01-05 22:41] VITALS: BP 114/97
[2021-01-06 03:00] VITALS: BP 144/82
[2021-01-06] MEDS: IV NORMAL SALINE 1000ML BAG 1,000 ML IV SCH (04:58)
[2021-01-06 07:00] VITALS: BP 138/72
[2021-01-06 07:16] LABS: BASO % 0 % (0-3); EOS # 0.1 x10^3/uL (0.0-0.7); EOS % 1 % (0-3); HEMATOCRIT 32.9 % (36.0-47.0); HEMOGLOBIN 11.2 g/dL (12.0-15.5); LYMPH % 13 % (24-48); MEAN CORPUSCULAR HEMOGLOBIN 29 pg (25-35); MEAN CORPUSCULAR HGB CONC 34 g/dL (31-37); MEAN CORPUSCULAR VOLUME 85 fL (79-100); MONO % 12 % (0-9); NEUT # 5.8 x10^3/uL (1.8-7.7); NEUT % 74 % (31-73); PLATELET COUNT 490 x10^3/uL (140-400); RED BLOOD COUNT 3.85 x10^6/uL (3.50-5.40); RED CELL DISTRIBUTION WIDTH 13.1 % (11.5-14.5); WHITE BLOOD COUNT 7.9 x10^3/uL (4.0-11.0)
[2021-01-06 07:41] LABS: CALCIUM 8.9 mg/dL (8.5-10.1); GFR 29.7; POTASSIUM 4.3 mmol/L (3.5-5.1)
[2021-01-06] MEDS: ASPIRIN CHEWABLE 81 MG TABLET. PO SCH (08:18)
[2021-01-06] MEDS: MULTIVITAMIN with MINERAL TABLET. PO SCH (08:18)
[2021-01-06] MEDS: PANTOPRAZOLE 40 MG TABLET.DR. PO SCH (08:18)
[2021-01-06] MEDS: INSULIN LISPRO 300 UNITS/3 ML VIAL. SQ SCH ×4 (08:20→12:24)
--- NOTE | 2021-01-06 09:30 | PDOC ---
Infectious Disease Note Subjective Subjective Patient is feeling good has no shortness of breath fever no nausea vomiting diarrhea ROS ROS Or fever Vital Sign Vital Signs Vital Signs Date Time Temp Pulse Resp B/P (MAP) Pulse Ox O2 Delivery O2 Flow Rate FiO2 01/06/21 08:19 85 138/72 01/06/21 07:00 98.4 17 98 Nasal Cannula 2.0 98.4 Physical Exam PHYSICAL EXAM GENERAL: Alert and oriented female, not in distress. VITAL SIGNS: Stable, afebrile. HEENT: NAD. NECK: Supple, no JVP, no lymphadenopathy. LUNGS: Clear. HEART: S1, S2 regular. ABDOMEN: Soft, nontender, no organomegaly. EXTREMITIES: No edema or cyanosis. SKIN: Unremarkable. NEUROLOGIC: The patient is alert, awake, and appropriate. No focal neurologic deficit. Labs Lab Laboratory Tests Test 01/05/21 12:11 01/05/21 16:41 01/05/21 19:25 01/06/21 06:15 Glucose (Fingerstick) 191 mg/dL (70-99) 102 mg/dL (70-99) 263 mg/dL (70-99) White Blood Count 7.9 x10^3/uL (4.0-11.0) Red Blood Count 3.85 x10^6/uL (3.50-5.40) Hemoglobin 11.2 g/dL (12.0-15.5) Hematocrit 32.9 % (36.0-47.0) Mean Corpuscular Volume 85 fL (79-100) Mean Corpuscular Hemoglobin 29 pg (25-35) Mean Corpuscular Hemoglobin Concent 34 g/dL (31-37) Red Cell Distribution Width 13.1 % (11.5-14.5) Platelet Count 490 x10^3/uL (140-400) Neutrophils (%) (Auto) 74 % (31-73) Lymphocytes (%) (Auto) 13 % (24-48) Monocytes (%) (Auto) 12 % (0-9) Eosinophils (%) (Auto) 1 % (0-3) Basophils (%) (Auto) 0 % (0-3) Neutrophils # (Auto) 5.8 x10^3/uL (1.8-7.7) Lymphocytes # (Auto) 1.0 x10^3/uL (1.0-4.8) Monocytes # (Auto) 1.0 x10^3/uL (0.0-1.1) Eosinophils # (Auto) 0.1 x10^3/uL (0.0-0.7) Basophils # (Auto) 0.0 x10^3/uL (0.0-0.2) Sodium Level 139 mmol/L (136-145) Potassium Level 4.3 mmol/L (3.5-5.1) Chloride Level 106 mmol/L (98-107) Carbon Dioxide Level 22 mmol/L (21-32) Anion Gap 11 (6-14) Blood Urea Nitrogen 43 mg/dL (7-20) Creatinine 2.0 mg/dL (0.6-1.0) Estimated GFR (Cockcroft-Gault) 29.7 Glucose Level 215 mg/dL (70-99) Calcium Level 8.9 mg/dL (8.5-10.1) Test 01/06/21 07:54 Glucose (Fingerstick) 246 mg/dL (70-99) Objective Assessment IMPRESSION: 1. COVID-19 positive. 2. Acute kidney injury. 3. Pulmonary infiltrate. 4. Diabetes. 5. Hypertension. 6. Abnormal urinalysis, probably related to the acute kidney injury. The patient is asymptomatic. Plan Plan of Care Creatinine has improved Patient has remained on room air and no fever patient can be discharged from the infectious disease standpoint of view SOILA OLSON MD Jan 06, 2021 09:30
--- NOTE | 2021-01-06 09:41 | PDOC ---
DATE OF SERVICE DATE: 01/06/21 TIME: 09:40 SUBJECTIVE ROS feeling better, No SOB, No N/V OBJECTIVE Vital Signs Vital Signs Date Time Temp Pulse Resp B/P (MAP) Pulse Ox O2 Delivery O2 Flow Rate FiO2 01/06/21 08:19 85 138/72 01/06/21 07:00 98.4 17 98 Nasal Cannula 2.0 98.4 I & 0 Intake and Output 01/06/21 07:00 Intake Total 1480 ml Output Total 750 ml Balance 730 ml Intake Oral 1480 ml Output Urine Total 750 ml # Voids 2 PHYSICAL EXAM Physical Exam GENERAL: not in distress. HEENT: NAD.OM moist NECK: Supple, LUNGS: Clear.Non labored HEART: S1, S2 regular. ABDOMEN: Soft, nontender, no organomegaly. EXTREMITIES: No edema or cyanosis. SKIN: Unremarkable. NEUROLOGIC: alert, awake, and appropriate. No focal neurologic deficit. DIAGNOSIS/ASSESSMENT Assessment & Plan ARELY-ATN- Cr 8.6 POA---> 2.0 Non Oliguric per RN . Maintain hydration , supportive care, stict I/O , Monitor daily labs CKD stage 2-Probably Dehydration - improving with IVF, maintain hydration Metabolic acidosis POA- resolved HypoNatRemia - POA- resolved DM2- Uncontrolled Abnormal UA- No UTI per ID . Pt asymptomatic COVID 19 infection- Unvaccinated COMMENT/RELEVANT DATA Meds Current Medications Medications (Trade) Dose Ordered Sig/Carline Start Time Stop Time Status Last Admin Dose Admin Acetaminophen (Tylenol) 1,000 mg 1X ONCE 01/03/21 16:00 01/03/21 16:01 DC 01/03/21 16:03 1,000 MG Acetaminophen/ Hydrocodone Bitart (Lortab 5/325) 1 tab PRN Q6HRS PRN 01/03/21 20:30 01/05/21 22:10 1 TAB Amino Acids/ Electrolytes/ Dextrose 1,000 ml @ 80 mls/hr [id number] 01/03/21 21:00 01/04/21 12:06 DC 01/04/21 08:54 80 MLS/HR Amlodipine Besylate (Norvasc) 10 mg DAILY 01/03/21 21:00 01/06/21 08:19 10 MG Aspirin (Aspirin Chewable) 81 mg [id number] 01/04/21 08:00 01/06/21 08:18 81 MG Dextrose (Dextrose 50%-Water Syringe) 12.5 gm PRN Q15MIN PRN 01/04/21 12:45 Doxycycline Hyclate 100 mg/ Sodium Chloride 100 ml @ 50 mls/hr Q12HR 01/03/21 21:00 01/04/21 10:54 DC 01/04/21 08:53 50 MLS/HR Guaifenesin/ Codeine Phosphate (Robitussin Ac) 5 ml PRN Q6HRS PRN 01/03/21 20:45 Insulin Glargine (Lantus Syringe) 10 unit QHS 01/04/21 21:00 01/05/21 21:49 10 UNIT Insulin Human Lispro (HumaLOG) 0-9 UNITS TIDWMEALS 01/04/21 17:00 01/06/21 08:20 5 UNITS Multivitamins (Thera M Plus) 1 tab DAILY 01/04/21 09:00 01/06/21 08:18 1 TAB Pantoprazole Sodium (Protonix) 40 mg DAILYAC 01/04/21 07:30 01/06/21 08:18 40 MG Sodium Chloride 1,000 ml @ 75 mls/hr [id number] 01/05/21 13:45 01/06/21 16:24 01/06/21 04:58 75 MLS/HR Lab Laboratory Tests Test 01/05/21 12:11 01/05/21 16:41 01/05/21 19:25 01/06/21 06:15 Glucose (Fingerstick) 191 mg/dL (70-99) 102 mg/dL (70-99) 263 mg/dL (70-99) White Blood Count 7.9 x10^3/uL (4.0-11.0) Red Blood Count 3.85 x10^6/uL (3.50-5.40) Hemoglobin 11.2 g/dL (12.0-15.5) Hematocrit 32.9 % (36.0-47.0) Mean Corpuscular Volume 85 fL (79-100) Mean Corpuscular Hemoglobin 29 pg (25-35) Mean Corpuscular Hemoglobin Concent 34 g/dL (31-37) Red Cell Distribution Width 13.1 % (11.5-14.5) Platelet Count 490 x10^3/uL (140-400) Neutrophils (%) (Auto) 74 % (31-73) Lymphocytes (%) (Auto) 13 % (24-48) Monocytes (%) (Auto) 12 % (0-9) Eosinophils (%) (Auto) 1 % (0-3) Basophils (%) (Auto) 0 % (0-3) Neutrophils # (Auto) 5.8 x10^3/uL (1.8-7.7) Lymphocytes # (Auto) 1.0 x10^3/uL (1.0-4.8) Monocytes # (Auto) 1.0 x10^3/uL (0.0-1.1) Eosinophils # (Auto) 0.1 x10^3/uL (0.0-0.7) Basophils # (Auto) 0.0 x10^3/uL (0.0-0.2) Sodium Level 139 mmol/L (136-145) Potassium Level 4.3 mmol/L (3.5-5.1) Chloride Level 106 mmol/L (98-107) Carbon Dioxide Level 22 mmol/L (21-32) Anion Gap 11 (6-14) Blood Urea Nitrogen 43 mg/dL (7-20) Creatinine 2.0 mg/dL (0.6-1.0) Estimated GFR (Cockcroft-Gault) 29.7 Glucose Level 215 mg/dL (70-99) Calcium Level 8.9 mg/dL (8.5-10.1) Test 01/06/21 07:54 Glucose (Fingerstick) 246 mg/dL (70-99) Results All relevant outside records, renal labs, imaging studies, telemetry/EKG's were reviewed. Justicifation of Admission Dx: Justifications for Admission: Justification of Admission Dx: Yes Acute Renal Failure: 3-Fold Rise in Serum EVELINE Malave MD Jan 06, 2021 09:41
[2021-01-06 11:00] VITALS: BP 154/62
--- NOTE | 2021-01-06 11:07 | PDOC ---
[employer] PROGRESS NOTE Date of Service DOS: DATE: 01/06/21 TIME: 11:06 Chief Complaint Chief Complaint A/P: Fatigue, weakness ARELY - vasomotor nephropathy, improving COVID 19 - mostly asymptomatic Pulmonary infiltrate - likely COVID 19 abnormality Diabetes - sliding scale Hypertension - cont home meds Abnormal urinalysis, probably related to the acute kidney injury - off antibiotics History of Present Illness History of Present Illness The patient is a pleasant 70-year-old female who presented to the ER tonight with fatigue. She has a known history of recent COVID infection. She has generalized fatigue for the past 7 days. She tested positive on 12/30, which was about 4 days ago. She did have some diarrhea. She felt nauseated. She is somewhat of a poor historian. I discussed the case with the ER physician, we are going to admit the patient with COVID-19 criteria and she also has renal failure with acute kidney injury with a BUN of 111 and a creatinine of 8.6. 01/04: Patient evaluated at bedside. Still treating for COVID-19. Remains on room air. Nephrology and pulmonary following. Kidney function improving today. PT OT 913: BUN 60, CR 2.7. Feeling very weak. Still with loose stools no diarrhea. No O2 requirements BUN 43, CR 2, afebrile, no O2 requirements. No diarrhea. Feels stronger today. Wishes to go home and recuperate with her daughter. plans on isolating until 01/10/2020 and stop lisinopril hydrochlorothiazide follow-up with nephrology outpatient. Transition to amlodipine for blood pressure control. Vitals/I&O Vitals/I&O: Vital Signs Date Time Temp Pulse Resp B/P (MAP) Pulse Ox O2 Delivery O2 Flow Rate FiO2 01/06/21 08:19 85 138/72 01/06/21 08:00 Nasal Cannula 2.0 01/06/21 07:00 98.4 17 98 98.4 I & O 01/05/21 01/05/21 01/06/21 15:00 23:00 07:00 Intake Total 440 ml 1040 ml Output Total 350 ml 400 ml Balance 440 ml 690 ml -400 ml Physical Exam Physical Exam: GENERAL: Alert and oriented female, not in distress. VITAL SIGNS: Stable, afebrile. HEENT: NAD. NECK: Supple, no JVP, no lymphadenopathy. LUNGS: Clear. HEART: S1, S2 regular. ABDOMEN: Soft, nontender, no organomegaly. EXTREMITIES: No edema or cyanosis. SKIN: Unremarkable. NEUROLOGIC: The patient is alert, awake, and appropriate. No focal neurologic deficit. General: Alert, Oriented X3, Cooperative, No acute distress Heart: Regular rate, Normal S1 Abdomen: Normal bowel sounds, Soft, No tenderness Extremities: No clubbing Skin: No breakdown Labs Labs: Laboratory Tests Test 01/05/21 12:11 01/05/21 16:41 01/05/21 19:25 01/06/21 06:15 Glucose (Fingerstick) 191 mg/dL (70-99) 102 mg/dL (70-99) 263 mg/dL (70-99) White Blood Count 7.9 x10^3/uL (4.0-11.0) Red Blood Count 3.85 x10^6/uL (3.50-5.40) Hemoglobin 11.2 g/dL (12.0-15.5) Hematocrit 32.9 % (36.0-47.0) Mean Corpuscular Volume 85 fL (79-100) Mean Corpuscular Hemoglobin 29 pg (25-35) Mean Corpuscular Hemoglobin Concent 34 g/dL (31-37) Red Cell Distribution Width 13.1 % (11.5-14.5) Platelet Count 490 x10^3/uL (140-400) Neutrophils (%) (Auto) 74 % (31-73) Lymphocytes (%) (Auto) 13 % (24-48) Monocytes (%) (Auto) 12 % (0-9) Eosinophils (%) (Auto) 1 % (0-3) Basophils (%) (Auto) 0 % (0-3) Neutrophils # (Auto) 5.8 x10^3/uL (1.8-7.7) Lymphocytes # (Auto) 1.0 x10^3/uL (1.0-4.8) Monocytes # (Auto) 1.0 x10^3/uL (0.0-1.1) Eosinophils # (Auto) 0.1 x10^3/uL (0.0-0.7) Basophils # (Auto) 0.0 x10^3/uL (0.0-0.2) Sodium Level 139 mmol/L (136-145) Potassium Level 4.3 mmol/L (3.5-5.1) Chloride Level 106 mmol/L (98-107) Carbon Dioxide Level 22 mmol/L (21-32) Anion Gap 11 (6-14) Blood Urea Nitrogen 43 mg/dL (7-20) Creatinine 2.0 mg/dL (0.6-1.0) Estimated GFR (Cockcroft-Gault) 29.7 Glucose Level 215 mg/dL (70-99) Calcium Level 8.9 mg/dL (8.5-10.1) Test 01/06/21 07:54 Glucose (Fingerstick) 246 mg/dL (70-99) Assessment and Plan Assessmemt and Plan Problems Medical Problems: (1) ARELY (acute kidney injury) Status: Acute (2) COVID-19 Status: Acute (3) High anion gap metabolic acidosis Status: Acute Comment Review of Relevant I have reviewed the following items dexter (where applicable) has been applied. Medications: Current Medications Medications (Trade) Dose Ordered Sig/Carline Route PRN Reason Start Time Stop Time Status Last Admin Dose Admin Sodium Chloride 1,000 ml @ 75 mls/hr [id number] IV 01/05/21 13:45 01/06/21 16:24 01/06/21 04:58 Justifications for Admission Other Justification BALTA MAGAÑA MD Jan 06, 2021 11:07
[2021-01-06] MEDS ORDERED: ASPI-630 PO (14:33)
[2021-01-06] MEDS ORDERED: AMLO-187 PO (14:33)
[2021-01-06] MEDS ORDERED: ZINC220C5 PO (14:33)
--- NOTE | 2021-01-06 14:38 | PDOC3 ---
Discharge Summary Visit Information Date of Admission: Jan 03, 2021 Date of Discharge: Jan 06, 2021 Admitting Diagnosis: ARELY Final Diagnosis Problems Medical Problems: (1) ARELY (acute kidney injury) Status: Acute (2) COVID-19 Status: Acute (3) High anion gap metabolic acidosis Status: Acute Brief Hospital Course Allergies Allergies Coded Allergies Type Severity Reaction Last Updated Verified No Known Drug Allergies 07/26/18 No Vital Signs Vital Signs Date Time Temp Pulse Resp B/P (MAP) Pulse Ox O2 Delivery O2 Flow Rate FiO2 01/06/21 08:19 85 138/72 01/06/21 08:00 Nasal Cannula 2.0 01/06/21 07:00 98.4 17 98 98.4 Lab Results Laboratory Tests Test 01/04/21 16:56 01/04/21 19:12 01/05/21 06:00 01/05/21 08:20 Glucose (Fingerstick) 234 mg/dL (70-99) 146 mg/dL (70-99) 207 mg/dL (70-99) Sodium Level 140 mmol/L (136-145) Potassium Level 4.8 mmol/L (3.5-5.1) Chloride Level 105 mmol/L (98-107) Carbon Dioxide Level 21 mmol/L (21-32) Anion Gap 14 (6-14) Blood Urea Nitrogen 60 mg/dL (7-20) Creatinine 2.7 mg/dL (0.6-1.0) Estimated GFR (Cockcroft-Gault) 21.0 Glucose Level 175 mg/dL (70-99) Calcium Level 9.4 mg/dL (8.5-10.1) Test 01/05/21 12:11 01/05/21 16:41 01/05/21 19:25 01/06/21 06:15 Glucose (Fingerstick) 191 mg/dL (70-99) 102 mg/dL (70-99) 263 mg/dL (70-99) White Blood Count 7.9 x10^3/uL (4.0-11.0) Red Blood Count 3.85 x10^6/uL (3.50-5.40) Hemoglobin 11.2 g/dL (12.0-15.5) Hematocrit 32.9 % (36.0-47.0) Mean Corpuscular Volume 85 fL (79-100) Mean Corpuscular Hemoglobin 29 pg (25-35) Mean Corpuscular Hemoglobin Concent 34 g/dL (31-37) Red Cell Distribution Width 13.1 % (11.5-14.5) Platelet Count 490 x10^3/uL (140-400) Neutrophils (%) (Auto) 74 % (31-73) Lymphocytes (%) (Auto) 13 % (24-48) Monocytes (%) (Auto) 12 % (0-9) Eosinophils (%) (Auto) 1 % (0-3) Basophils (%) (Auto) 0 % (0-3) Neutrophils # (Auto) 5.8 x10^3/uL (1.8-7.7) Lymphocytes # (Auto) 1.0 x10^3/uL (1.0-4.8) Monocytes # (Auto) 1.0 x10^3/uL (0.0-1.1) Eosinophils # (Auto) 0.1 x10^3/uL (0.0-0.7) Basophils # (Auto) 0.0 x10^3/uL (0.0-0.2) Sodium Level 139 mmol/L (136-145) Potassium Level 4.3 mmol/L (3.5-5.1) Chloride Level 106 mmol/L (98-107) Carbon Dioxide Level 22 mmol/L (21-32) Anion Gap 11 (6-14) Blood Urea Nitrogen 43 mg/dL (7-20) Creatinine 2.0 mg/dL (0.6-1.0) Estimated GFR (Cockcroft-Gault) 29.7 Glucose Level 215 mg/dL (70-99) Calcium Level 8.9 mg/dL (8.5-10.1) Test 01/06/21 07:54 01/06/21 12:17 Glucose (Fingerstick) 246 mg/dL (70-99) 122 mg/dL (70-99) Laboratory Tests Test 01/05/21 16:41 01/05/21 19:25 01/06/21 06:15 01/06/21 07:54 Glucose (Fingerstick) 102 mg/dL (70-99) 263 mg/dL (70-99) 246 mg/dL (70-99) White Blood Count 7.9 x10^3/uL (4.0-11.0) Red Blood Count 3.85 x10^6/uL (3.50-5.40) Hemoglobin 11.2 g/dL (12.0-15.5) Hematocrit 32.9 % (36.0-47.0) Mean Corpuscular Volume 85 fL (79-100) Mean Corpuscular Hemoglobin 29 pg (25-35) Mean Corpuscular Hemoglobin Concent 34 g/dL (31-37) Red Cell Distribution Width 13.1 % (11.5-14.5) Platelet Count 490 x10^3/uL (140-400) Neutrophils (%) (Auto) 74 % (31-73) Lymphocytes (%) (Auto) 13 % (24-48) Monocytes (%) (Auto) 12 % (0-9) Eosinophils (%) (Auto) 1 % (0-3) Basophils (%) (Auto) 0 % (0-3) Neutrophils # (Auto) 5.8 x10^3/uL (1.8-7.7) Lymphocytes # (Auto) 1.0 x10^3/uL (1.0-4.8) Monocytes # (Auto) 1.0 x10^3/uL (0.0-1.1) Eosinophils # (Auto) 0.1 x10^3/uL (0.0-0.7) Basophils # (Auto) 0.0 x10^3/uL (0.0-0.2) Sodium Level 139 mmol/L (136-145) Potassium Level 4.3 mmol/L (3.5-5.1) Chloride Level 106 mmol/L (98-107) Carbon Dioxide Level 22 mmol/L (21-32) Anion Gap 11 (6-14) Blood Urea Nitrogen 43 mg/dL (7-20) Creatinine 2.0 mg/dL (0.6-1.0) Estimated GFR (Cockcroft-Gault) 29.7 Glucose Level 215 mg/dL (70-99) Calcium Level 8.9 mg/dL (8.5-10.1) Test 01/06/21 12:17 Glucose (Fingerstick) 122 mg/dL (70-99) Brief Hospital Course The patient is a pleasant 70-year-old female who presented to the [facility] with fatigue. She has a known history of recent COVID infection. She has generalized fatigue for the past 7 days. She tested positive on 12/30, which was about 4 days ago. She did have some diarrhea. She felt nauseated. She is somewhat of a poor historian. I discussed the case with the ER physician, we are going to admit the patient with COVID-19 criteria and she also has renal failure with acute kidney injury with a BUN of 111 and a creatinine of 8.6. 01/04: Patient evaluated at bedside. Still treating for COVID-19. Remains on room air. Nephrology and pulmonary following. Kidney function improving today. PT OT 913: BUN 60, CR 2.7. Feeling very weak. Still with loose stools no diarrhea. No O2 requirements BUN 43, CR 2, afebrile, no O2 requirements. No diarrhea. Feels stronger today. Wishes to go home and recuperate with her daughter. plans on isolating until 01/10/2020 and stop lisinopril hydrochlorothiazide follow-up with nephrology outpatient. Transition to amlodipine for blood pressure control. Consults: ID and nephrology Problem list: Fatigue, weakness ARELY - vasomotor nephropathy, improving COVID 19 - mostly asymptomatic Pulmonary infiltrate - likely COVID 19 abnormality Diabetes - sliding scale Hypertension - cont home meds Abnormal urinalysis, probably related to the acute kidney injury - off antibiotics Greater than 30 minutes spent on d/c Discharge Information Condition at Discharge: Improved Follow Up: Weeks Disposition/Orders: D/C to Home Scheduled Amlodipine Besylate (Amlodipine Besylate) 10 Mg Tablet, 10 MG PO DAILY for HTN for 30 Days, #30 Ref 2 Prescribed by: BALTA MAGAÑA MD on 01/06/21 1433 Aspirin (Aspirin) 81 Mg Tab.chew, 81 MG PO DAILYWBKFT for COVID 19 for 30 Days, #30 Prescribed by: BALTA MAGAÑA MD on 01/06/21 1433 Nph, Human Insulin Isophane (Novolin N) 100 Unit/1 Ml Vial, 10 UNIT SQ BIDAC for diabetes, (Reported) Entered as Reported by: ROLAN LUGO on 07/25/18 1609 Omeprazole (Omeprazole) 40 Mg Capsule.dr, 1 CAP PO DAILY for stomach ulcer, #30 Ref 3 (Reported) Entered as Reported by: CESAR VALVERDE on 07/18/182022 Last Action: Converted on 01/03/212024 by KEMAR MARTINEZ Zinc Sulfate (Zinc Sulfate) 50 Mg Capsule, 50 MG PO DAILY for COVID 19 for 30 Days, #30 Prescribed by: BALTA MAGAÑA MD on 01/06/21 1433 Scheduled PRN Hydrocodone Bit/Acetaminophen (Hydrocodone-Apap 5-325 ) 1 Tab Tablet, 1 TAB PO PRN Q6HRS PRN for PAIN, Ref 0 (Reported) Entered as Reported by: ROLAN LUGO on 07/25/18 1610 Last Action: Continued on 01/03/212024 by KEMAR MARTINEZ Discontinued Medications Lisinopril/Hydrochlorothiazide (Lisinopril-Hctz 10-12.5 Mg Tab) 1 Each Tablet, 1 TAB PO DAILY for HTN, #30 Ref 5 (Reported) Entered as Reported by: CESAR VALVERDE on 07/18/182022 Justicifation of Admission Dx: Justifications for Admission: Justification of Admission Dx: Yes Acute Renal Failure: 3-Fold Rise in Serum Crea BALTA MAGAÑA MD Jan 06, 2021 14:38
--- NOTE | 2021-01-06 15:36 | NUR ---
Discharge Note: BILL GOODWIN Discharge instructions and discharge home medications reviewed with Patient and a copy given. All questions have been answered and understanding verbalized. The following instructions and handouts were given: discharge instructions, new prescriptions, education and follow up recommendations. Discontinued lines and drains: Peripheral IV discontinued intact. Patient discharged to Home or Self Care with Family Member via Wheelchair off unit by [employer].
== END 2021-01-06 15:40 | disposition home or self-care (01) | DRG 177 ==
LOC: ER 13:08 → 5 NORTH 16:37
PROVIDERS: ADMIT Internal Medicine; ATTEND Internal Medicine
DX: U07.1 COVID-19 (principal); N17.0 Acute kidney failure with tubular necrosis; E87.1 Hypo-osmolality and hyponatremia; E87.2 Acidosis; N39.0 Urinary tract infection, site not specified; I10 Essential (primary) hypertension; E86.0 Dehydration; E11.9 Type 2 diabetes mellitus without complications; I25.10 Atherosclerotic heart disease of native coronary artery without angina pectoris; Z87.891 Personal history of nicotine dependence; Z83.3 Family history of diabetes mellitus; Z90.710 Acquired absence of both cervix and uterus
CPT/HCPCS: 36415; 36600; 71045; 80048; 81001; 82805; 82962; 85025; 93005; 94640; 94760; 96360; 96361; J1815; J3490; J7030; 99285-25; G0378

== ENCOUNTER 2021-03-20 19:39 | Emergency (ER) | payer MEDICARE ==
[~2021-03-20] VITALS: Ht 165.1 cm; Wt 68.2 kg
[~2021-03-20 19:39] MED LIST changes: +AMLO-187 PO; +ASPI-630 PO; -LISI1TAB23 PO; +LISI1TAB35 PO; +ZINC220C5 PO
[2021-03-20] MEDS ORDERED: DIPH,PERTUSS(ACELL),TET VAC/PF 0.5 ML SYRINGE. VAX IM ONE (21:00)
[2021-03-20] MEDS ORDERED: LIDOCAINE 1% Multi-Dose 20 ML VIAL. INJ ONE (21:00)
--- NOTE | 2021-03-20 21:23 | PHYS DOC ---
Past Medical History Past Medical History: Diabetes-Type II, Hypertension Additional Past Medical Histor: COVID-19(01/2021) Past Surgical History: Hysterectomy Smoking Status: Former Smoker Alcohol Use: None Drug Use: None General Adult EDM: Chief Complaint: LACERATION/AVULSION HPI: HPI: Patient is a 70-year-old female that presents today for a laceration on her right index finger. She states she was opening a can and she said she cut her finger on the can lid. This happened about 730 this evening. Patient states she is unknown on her tetanus status. Review of Systems: Review of Systems: Constitutional: Denies fever or chills. [] Eyes: Denies change in visual acuity. [] HENT: Denies nasal congestion or sore throat. [] Respiratory: Denies cough or shortness of breath. [] Cardiovascular: Denies chest pain or edema. [] GI: Denies abdominal pain, nausea, vomiting, bloody stools or diarrhea. [] : Denies dysuria. [] Musculoskeletal: Denies back pain or joint pain. [] Integument: Laceration to the right index finger Neurologic: Denies headache, focal weakness or sensory changes. [] Endocrine: Denies polyuria or polydipsia. [] Lymphatic: Denies swollen glands. [] Psychiatric: Denies depression or anxiety. [] Heart Score: C/O Chest Pain: N/A Risk Factors: Risk Factors: DM, Current or recent (<one month) smoker, HTN, HLP, family history of CAD, obesity. Risk Scores: Score 0 - 3: 2.5% MACE over next 6 weeks - Discharge Home Score 4 - 6: 20.3% MACE over next 6 weeks - Admit for Clinical Observation Score 7 - 10: 72.7% MACE over next 6 weeks - Early Invasive Strategies Current Medications: Current Medications Medications (Trade) Dose Ordered Sig/Carline Start Time Stop Time Status Last Admin Dose Admin Diphtheria/ Tetanus/Acell Pertussis (ADACEL TDap SYRINGE) 0.5 ml ONCE ONCE 03/20/21 21:00 03/20/21 21:01 DC 03/20/21 20:47 0.5 ML Lidocaine HCl (Lidocaine 1% 20ml Vial) 20 ml 1X ONCE 03/20/21 21:00 03/20/21 21:01 DC Allergies: Allergies: Allergies Coded Allergies Type Severity Reaction Last Updated Verified No Known Drug Allergies 07/26/18 No Physical Exam: PE: Constitutional: Well developed, well nourished, no acute distress, non-toxic appearance. [] HENT: Normocephalic, atraumatic, bilateral external ears normal, oropharynx moist, no oral exudates, nose normal. [] Eyes: PERRLA, EOMI, conjunctiva normal, no discharge. [] Neck: Normal range of motion, no tenderness, supple, no stridor. [] Cardiovascular:Heart rate regular rhythm, no murmur [] Lungs & Thorax: Bilateral breath sounds clear to auscultation [] Abdomen: Bowel sounds normal, soft, no tenderness, no masses, no pulsatile mas ses. [] Skin: Warm, dry, no erythema, no rash. [] Back: No tenderness, no CVA tenderness. [] Extremities: 1 cm laceration noted over the distal joint of the right index finger, no uncontrolled bleeding noted, neurovascular intact distal to the injury, flexion-extension is intact in the right index finger Neurologic: Alert and oriented X 3, normal motor function, normal sensory function, no focal deficits noted. [] Psychologic: Affect normal, judgement normal, mood normal. [] Current Patient Data: Vital Signs: Vital Signs Date Time Temp Pulse Resp B/P (MAP) Pulse Ox O2 Delivery O2 Flow Rate FiO2 03/20/21 19:43 98.5 99 16 150/101 (117) 99 Room Air 98.5 EKG: EKG: [] Radiology/Procedures: Radiology/Procedures: Indication: Laceration right index finger Procedure: Patient was placed in a supine sitting position hand was then placed on a towel, area was cleansed with Betadine solution, 1% lidocaine with out epinephrine was used to anesthetize the area. 60 mL of normal saline was used to irrigate the wound. Wound was then sutured with 4-0 Ethilon with 3 interrupted sutures. Area was cleansed. Dressing applied by nursing staff Total repaired wound length: 1 cm The patient tolerated the procedure well. Complications: No complications Course & Med Decision Making: Course & Med Decision Making Pertinent Labs and Imaging studies reviewed. (See chart for details) Sutures done, dressing applied by nursing staff. Will instruct patient to come back in 10 days to have suture removed. Instructed patient to cleanse wound twice daily with mild soap and water. Pat dry do not submerge wound keep covered if necessary. Return to the emergency department or follow-up with your primary care physician to have the sutures removed. Return to the emergency department for any signs and symptoms of infection which include increased pain and swelling, redness, drainage Dragon Disclaimer: Dragon Disclaimer: This electronic medical record was generated, in whole or in part, using a voice recognition dictation system. Departure Departure Impression: Primary Impression: Laceration of finger Qualified Codes: S61.210A - Laceration without foreign body of right index finger without damage to nail, initial encounter Disposition: HOME / SELF CARE / HOMELESS Condition: STABLE Referrals: SENAIT MATT MD (PCP) Patient Instructions: Laceration Care, Adult Additional Instructions: Keep wound clean and dry, do not submerge the finger while the sutures are in p lace. Okay to bathe as normal just pat the wound dry Clean the wound twice daily with mild soap and water, watch for any signs and symptoms of infection which may include redness, drainage, swelling, or increased pain, if any of those occur please return to the emergency department for further evaluation Return to have sutures out in 10 days, either return here to the emergency de partment or follow-up with your primary care physician Tylenol and/or ibuprofen as needed for pain per label directed PORFIRIO MORALES [employer] CHIEF EQUIPMENT TECHNICIAN Mar 20, 2021 21:23
[2021-03-20 21:36] VITALS: BP 157/88
== END 2021-03-20 21:40 | disposition home or self-care (01) ==
LOC: ER 19:39
DX: S61.210A Laceration without foreign body of right index finger without damage to nail, initial encounter (principal); E11.9 Type 2 diabetes mellitus without complications; I10 Essential (primary) hypertension; Z87.891 Personal history of nicotine dependence; W26.8XXA Contact with other sharp object(s), not elsewhere classified, initial encounter; Y93.89 Activity, other specified; Y92.89 Other specified places as the place of occurrence of the external cause; Y99.8 Other external cause status
CPT/HCPCS: 12001; 90471; 90715; 99283; J3490

== ENCOUNTER 2021-03-31 09:25 | Emergency (ER) | payer MEDICARE ==
[~2021-03-31] VITALS: Ht 165.1 cm; Wt 77.2 kg
[2021-03-31 09:43] VITALS: BP 180/80
--- NOTE | 2021-03-31 10:15 | PHYS DOC ---
Past Medical History Past Medical History: Diabetes-Type II, Hypertension Additional Past Medical Histor: COVID-19(01/2021) Past Surgical History: Hysterectomy Smoking Status: Former Smoker Alcohol Use: None Drug Use: None General Adult EDM: Chief Complaint: SUTURE/STAPLE REMOVAL HPI: HPI: Patient is a 70 year old female who presents for suture removal to index finger. On assessment of patient's finger, no sutures were seen. No signs of infection. Patient denies any complaints. Review of Systems: Review of Systems: ROS At least 10 ROS systems have been reviewed and are negative except as documented in the HPI. General: Negative except as outlined in HPI above. Skin: Negative except as outlined in HPI above. HEENT: Negative except as outlined in HPI above. Neck: Negative except as outlined in HPI above. Respiratory: Negative except as outlined in HPI above.. Cardiovascular: Negative except as outlined in HPI above. Abdomen: Negative except as outlined in HPI above. : Negative except as outlined in HPI above. Back/MSK: Negative except as outlined in HPI above. Neuro: Negative except as outlined in HPI above. Psych: Negative except as outlined in HPI above. Heart Score: C/O Chest Pain: No Risk Factors: Risk Factors: DM, Current or recent (<one month) smoker, HTN, HLP, family history of CAD, obesity. Risk Scores: Score 0 - 3: 2.5% MACE over next 6 weeks - Discharge Home Score 4 - 6: 20.3% MACE over next 6 weeks - Admit for Clinical Observation Score 7 - 10: 72.7% MACE over next 6 weeks - Early Invasive Strategies Allergies: Allergies: Allergies Coded Allergies Type Severity Reaction Last Updated Verified No Known Drug Allergies 07/26/18 No Physical Exam: PE: Constitutional: Well developed, well nourished, no acute distress, non-toxic appearance. [] HENT: Normocephalic, atraumatic, bilateral external ears normal, oropharynx moist, no oral exudates, nose normal. [] Eyes: PERRLA, EOMI, conjunctiva normal, no discharge. [] Neck: Normal range of motion, no tenderness, supple, no stridor. [] Cardiovascular:Heart rate regular rhythm, no murmur [] Lungs & Thorax: Bilateral breath sounds clear to auscultation [] Abdomen: Bowel sounds normal, soft, no tenderness, no masses, no pulsatile masses. [] Skin: Warm, dry, no erythema, no rash. [] Back: No tenderness, no CVA tenderness. [] Extremities: No tenderness, no cyanosis, no clubbing, ROM intact, no edema. [] Neurologic: Alert and oriented X 3, normal motor function, normal sensory function, no focal deficits noted. [] Psychologic: Affect normal, judgement normal, mood normal. [] Current Patient Data: Vital Signs: Vital Signs Date Time Temp Pulse Resp B/P (MAP) Pulse Ox O2 Delivery O2 Flow Rate FiO2 03/31/21 09:43 98.4 93 20 180/80 (113) 97 Room Air 98.4 EKG: EKG: [] Radiology/Procedures: Radiology/Procedures: 70-year-old female presents for suture removal. No suture seen on assessment. No signs of infection. Wound healed appropriately. Patient denies any complaints. Course & Med Decision Making: Course & Med Decision Making Pertinent Labs and Imaging studies reviewed. (See chart for details) [] Dragon Disclaimer: Dragon Disclaimer: This electronic medical record was generated, in whole or in part, using a voice recognition dictation system. Departure Departure Impression: Primary Impression: Visit for suture removal Disposition: HOME / SELF CARE / HOMELESS Condition: STABLE Referrals: SENAIT MATT MD (PCP) Patient Instructions: Sutured Wound Care, [id number] Additional Instructions: EMERGENCY DEPARTMENT GENERAL DISCHARGE INSTRUCTIONS Thank you for coming to [facility] Emergency Department (ED) today and trusting us with you care. We trust that you had a positive experience in our Emergency Department. If you wish to speak to the department management, you may call the Director at [phone]. YOUR FOLLOW UP INSTRUCTIONS ARE FOLLOWS: 1. Do you have a private Doctor? If you do not have a private doctor, please ask for a resource list of physicians or clinics that may be able to assist you with follow up care. 2. The Emergency Physicain has interpreted your x-rays. The X-Ray specialist will also review them. If there is a change in the findings, you will be notified in 48 hours when at all possible. 3. A lab test or culture has been done, your results will be reviewed and you will be notified if you need a change in treatment. ADDITIONAL INSTRUCTIONS AND INFORMATION: 1. Your care today has been supervised by a physician who is specially trained in emergency care. Many problems require more than one evaluation for a complete diagnosis and treatment. We recommend that you schedule your follow up appointment as recommended to ensure complete treatment of you illness or injury. If you are unable to obtain follow up care and continue to have a problem, or if your condition worsens, we recommend that you return to the ED. 2. We are not able to safely determine your condition over the phone nor are we able to give sound medical advice over the phone. For these safety reasons, if you call for medical advice we will ask you to come to the ED for further evaluation. 3. If you have any questions regarding these discharge instructions please call the ED at [phone]. SAFETY INFORMATION: In the interest of safety, wellness, and injury prevention; we encourage you to wear your sealbelt, if you smoke; quite smoking, and we encourage family to use a pro tective helmet for bicycling and other sporting events that present an increased risk for head injury. IF YOUR SYMPTOMS WORSEN OR NEW SYMPTOMS DEVELOP, OR YOU HAVE CONCERNS ABOUT YOUR CONDITION; OR IF YOUR CONDITION WORSENS WHILE YOU ARE WAITING FOR YOUR FOLLOW UP APPOINTMENT; EITHER CONTACT YOUR PRIMARY CARE DOCTOR, THE PHYSICIAN WHOSE NAME AND NUMBER YOU WERE GIVEN, OR RETURN TO THE ED IMMEDIATELY. ALISON PEREZ APRN Mar 31, 2021 10:15
== END 2021-03-31 10:19 | disposition home or self-care (01) ==
LOC: ER 09:25
DX: S61.211D Laceration without foreign body of left index finger without damage to nail, subsequent encounter (principal); E11.9 Type 2 diabetes mellitus without complications; I10 Essential (primary) hypertension; Z87.891 Personal history of nicotine dependence; X58.XXXD Exposure to other specified factors, subsequent encounter
CPT/HCPCS: 99281